=== PATIENT | male | born 1955 | race Caucasian/White ===

== ENCOUNTER 2016-06-01 06:26 | Inpatient (IN) | payer BC ==
[~2016-06-01] VITALS: Ht 177.8 cm; Wt 78.2 kg
[2016-06-01] MEDS ORDERED: ASPIRIN 81 MG CHEW PO STA (06:43)
[2016-06-01 06:50] LABS: BASO % 0.6 %; BASO ABS # 0.05 K/uL (0-0.2); COMPLETE YES; HEMATOCRIT 43.2 % (42-52); IG% 0.1 %; LYMPH % 17.4 %; LYMPH ABS # 1.55 K/uL (1.2-3.4); MEAN CELL VOLUME 79.3 fL (80-100); MEAN CORPUSCULAR HEMOGLOBIN 27.5 pg (25-34); MEAN CORPUSCULAR HGB CONC 34.7 g/dl (32-36); MEAN PLATELET VOLUME 12.8 fL (7.4-10.4); MONO % 6.3 %; NEUT % 75.6 %; PLATELET COUNT 203 K/uL (130-400); RED BLOOD COUNT 5.45 M/uL (4.7-6.1); WHITE BLOOD COUNT 8.91 K/uL (4.8-10.8)
[2016-06-01] MEDS: NITROGLYCERIN 0.4 MG SL PER TAB CHARGE SL PRN ×7 (06:53→14:05)
[2016-06-01 07:06] LABS: BUN/CREATININE RATIO 15.6 (10-20); CALCIUM 8.7 mg/dl (8.5-10.1); CREATININE 0.94 mg/dl (0.60-1.40)
[2016-06-01 07:15] LABS: CKMB/CK RATIO 3.7 (0-3.0)
[2016-06-01] MEDS ORDERED: METOPROLOL TARTRATE 50 MG TAB PO STA (07:15)
[2016-06-01] MEDS ORDERED: FENTANYL CITRATE INJ 50 MCG/1 ML 2 ML VIAL IV STA (07:22)
[2016-06-01] MEDS ORDERED: TRML160 (07:25)
[2016-06-01] MEDS ORDERED: ASPI81TA28 PO (07:25)
[2016-06-01] MEDS ORDERED: GLIP2.5T5 PO (07:25)
[2016-06-01] MEDS ORDERED: SITA100T3 PO (07:25)
[2016-06-01] MEDS ORDERED: CLOP1TAB15 PO (07:25)
[2016-06-01] MEDS ORDERED: EMPA1TAB3 PO (07:25)
[2016-06-01] MEDS ORDERED: NITR0.4D6 (07:25)
[2016-06-01] MEDS ORDERED: ATOR-26 PO (07:25)
[2016-06-01] MEDS ORDERED: RIZA10TA18 PO (07:25)
[2016-06-01] MEDS ORDERED: METO25TA56 PO (07:25)
[2016-06-01] MEDS ORDERED: LOSA50TA6 PO (07:25)
[2016-06-01] MEDS ORDERED: HEPARIN 25000 UNIT/500 ML D5W ONE (07:26)
[2016-06-01] MEDS ORDERED: HEPARIN SOD 5000 UNIT/0.5 ML CARP ONE (07:26)
[2016-06-01 07:45] VITALS: O2SAT 94; BMI 27.8
[2016-06-01] MEDS ORDERED: HEPARIN 25,000 UNIT/500ML D5W 500 ML IV PRN (07:45)
--- NOTE | 2016-06-01 07:58 | DIAGNOSTIC IMAGING REPORT ---
SINGLE VIEW CHEST CLINICAL HISTORY: Atypical chest pain. FINDINGS: An AP, portable, upright chest radiograph is obtained. No prior studies are available for comparison at the time of dictation. The examination is degraded by portable technique and patient rotation. The heart is mildly enlarged. The pulmonary vasculature is noncongested. There are bibasilar airspace opacities. The upper lungs appear clear. No large pleural effusion or pneumothorax is seen. The bony thorax is grossly intact. Degenerative change is noted throughout the thoracic spine. IMPRESSION: 1. Cardiomegaly without radiographic evidence of congestive failure. 2. There are bibasilar airspace opacities. This could represent atelectasis versus an infectious/inflammatory pneumonitis. Clinical correlation will be required. Electronically signed by: Deng Khan M.D. 06/01/2016 7:57 AM Dictated Date/Time: 06/01/2016 7:56 AM
--- NOTE | 2016-06-01 08:36 | EMERGENCY ROOM VISIT NOTE ---
History Report prepared by Tommy: Gladys Portillo Under the Supervision of: Dr. Jero Hunt D.O. First contact with patient: 06:37 Chief Complaint: CARDIAC ASSESSMENT Stated Complaint: POSSIBLE HEART ATTACK History of Present Illness The patient is a 60 year old male who presents to the Emergency Room with complaints of waxing and waning chest pain starting 3 days ago. He currently rates his discomfort as a 6/10 in severity. He had an MA in 2015. He describes the pain as similar. His pain is present down his sternum and radiates into his arms. The pain does not radiate to his back. With his previous MA his chest pain was more in the left side. He was not doing anything in particular when the pain began. Last night at around 0200 the pain was more severe and roused him from his sleep. He reports SOB with walking around 60 feet. He has been taking nitro frequently for the past 2 weeks to no relief. He has stents in the left side of his heart. He denies any previous issues with his aorta. He has been off of his Plavix for the past week. Source of History: patient Onset: 3 days ago Position: chest Symptom Intensity: 6/10 Quality: other (similar to previous MA) Timing: waxes/wanes Associated Symptoms: + SOB, No back pain Note: Pt reports arm pain. Review of Systems See HPI for pertinent positives & negatives. A total of 10 systems reviewed and were otherwise negative. Past Medical & Surgical Medical Problems: (1) Diabetes (2) Heart attack (3) Heart disease (4) Hypertension (5) Kidney stones (6) NSTEMI (non-ST elevated myocardial infarction) Family History Diabetes mellitus FH: heart disease Hypertension Kidney stones Social History Smoking Status: Never Smoker Alcohol Use: none Marital Status: Housing Status: lives with significant other Occupation Status: employed Current/Historical Medications Scheduled Aspirin (Aspirin Ec), 81 MG PO DAILY Atorvastatin (Lipitor), 80 MG PO DAILY Clopidogrel (Plavix), 75 MG PO DAILY Empagliflozin (Jardiance), 25 MG PO DAILY Glipizide-Metformin Hcl (Glipizide/Metformin Hcl), 2 TAB PO BID Losartan Potassium (Cozaar), 50 MG PO DAILY Metoprolol Tartrate (Lopressor) (Lopressor), 25 MG PO BID Rizatriptan Benzoate (Maxalt), 10 MG PO UD Sitagliptin Phosphate (Januvia), 100 MG PO DAILY Miscellaneous Medications Nitroglycerin (Nitroglycerin) Triamcinolone (Triamcinolone Acetonide) Allergies Coded Allergies: Acetaminophen (Unverified Allergy, Unknown, ., 06/01/16) Methadone (Unverified Allergy, Unknown, ., 06/01/16) Oxycodone (Unverified Allergy, Unknown, ., 06/01/16) Propoxyphene (Unverified Allergy, Unknown, ., 06/01/16) Physical Exam Vital Signs Date Time Temp Pulse Resp B/P Pulse Ox O2 Delivery O2 Flow Rate FiO2 06/01/16 11:41 60 16 158/76 99 Room Air 06/01/16 10:00 68 17 142/91 91 Room Air 06/01/16 09:53 67 20 148/98 93 Room Air 06/01/16 09:47 65 17 160/97 93 Room Air 06/01/16 08:30 64 19 158/101 94 Room Air 06/01/16 08:15 151/94 06/01/16 08:05 65 15 94 Room Air 06/01/16 08:00 151/91 06/01/16 07:50 70 17 97 Room Air 06/01/16 07:45 160/93 06/01/16 07:45 94 Room Air 06/01/16 07:35 67 18 156/93 95 Room Air 06/01/16 07:33 68 17 159/87 95 Room Air 06/01/16 07:22 69 18 166/92 96 06/01/16 07:09 71 14 163/106 97 Room Air 06/01/16 06:53 75 17 184/119 97 Room Air 06/01/16 06:39 68 06/01/16 06:37 97 Room Air 06/01/16 06:37 97 Room Air 06/01/16 06:28 36.4 74 20 210/124 97 Room Air Physical Exam GENERAL: ill appearing, sitting up in bed, disheveled EYE EXAM: normal conjunctiva OROPHARYNX: no exudate, no erythema, lips, buccal mucosa, and tongue normal and mucous membranes are moist NECK: supple, no nuchal rigidity, no adenopathy, non-tender LUNGS: Clear to auscultation. Normal chest wall mechanics HEART: no murmurs, S1 normal and S2 normal ABDOMEN: abdomen soft, non-tender, normo-active bowel sounds, no masses, no rebound or guarding. BACK: Back is symmetrical on inspection and there is no deformity, no midline tenderness, no CVA tenderness. SKIN: no rashes and no bruising UPPER EXTREMITIES: upper extremities are grossly normal. Radial pulses are equal bilaterally. LOWER EXTREMITIES: No pitting edema. NEURO EXAM: Normal sensorium, cranial nerves II-XII grossly intact, normal speech, no gross weakness of arms, no gross weakness of legs. Medical Decision & Procedures ER Provider Diagnostic Interpretation: Xray results as stated below per the radiologist's and my interpretation: SINGLE VIEW CHEST CLINICAL HISTORY: Atypical chest pain. FINDINGS: An AP, portable, upright chest radiograph is obtained. No prior studies are available for comparison at the time of dictation. The examination is degraded by portable technique and patient rotation. The heart is mildly enlarged. The pulmonary vasculature is noncongested. There are bibasilar airspace opacities. The upper lungs appear clear. No large pleural effusion or pneumothorax is seen. The bony thorax is grossly intact. Degenerative change is noted throughout the thoracic spine. IMPRESSION: 1. Cardiomegaly without radiographic evidence of congestive failure. 2. There are bibasilar airspace opacities. This could represent atelectasis versus an infectious/inflammatory pneumonitis. Clinical correlation will be required. Electronically signed by: Deng Khan M.D. 06/01/2016 7:57 AM Dictated Date/Time: 06/01/2016 7:56 AM Laboratory Results 06/01/16 06:35 Red Blood Count 5.45, Mean Corpuscular Volume 79.3, Mean Corpuscular Hemoglobin 27.5, Mean Corpuscular Hemoglobin Concent 34.7, Mean Platelet Volume 12.8, Neutrophils (%) (Auto) 75.6, Lymphocytes (%) (Auto) 17.4, Monocytes (%) (Auto) 6.3, Eosinophils (%) (Auto) 0.0, Basophils (%) (Auto) 0.6, Neutrophils # (Auto) 6.74, Lymphocytes # (Auto) 1.55, Monocytes # (Auto) 0.56, Eosinophils # (Auto) 0.00, Basophils # (Auto) 0.05 06/01/16 06:35 Test 06/01/16 06:35 06/01/16 06:42 White Blood Count 8.91 K/uL (4.8-10.8) Red Blood Count 5.45 M/uL (4.7-6.1) Hemoglobin 15.0 g/dL (14.0-18.0) Hematocrit 43.2 % (42-52) Mean Corpuscular Volume 79.3 fL (80-100) Mean Corpuscular Hemoglobin 27.5 pg (25-34) Mean Corpuscular Hemoglobin Concent 34.7 g/dl (32-36) Platelet Count 203 K/uL (130-400) Mean Platelet Volume 12.8 fL (7.4-10.4) Neutrophils (%) (Auto) 75.6 % Lymphocytes (%) (Auto) 17.4 % Monocytes (%) (Auto) 6.3 % Eosinophils (%) (Auto) 0.0 % Basophils (%) (Auto) 0.6 % Neutrophils # (Auto) 6.74 K/uL (1.4-6.5) Lymphocytes # (Auto) 1.55 K/uL (1.2-3.4) Monocytes # (Auto) 0.56 K/uL (0.11-0.59) Eosinophils # (Auto) 0.00 K/uL (0-0.5) Basophils # (Auto) 0.05 K/uL (0-0.2) RDW Standard Deviation 37.6 fL (36.4-46.3) RDW Coefficient of Variation 13.3 % (11.5-14.5) Immature Granulocyte % (Auto) 0.1 % Immature Granulocyte # (Auto) 0.01 K/uL (0.00-0.02) Anion Gap 7.0 mmol/L (3-11) Est Creatinine Clear Calc Drug Dose 82.2 ml/min Estimated GFR () 101.7 Estimated GFR (Non- 87.8 BUN/Creatinine Ratio 15.6 (10-20) Calcium Level 8.7 mg/dl (8.5-10.1) Total Creatine Kinase 98 U/L (39-308) Creatine Kinase MB 3.6 ng/ml (0.5-3.6) Creatine Kinase MB Ratio 3.7 (0-3.0) Troponin I 0.558 ng/ml (0-0.045) Hepatitis C Antibody Screen NEG (NEG) Bedside Troponin I 0.480 ng/ml (0-0.045) Laboratory results per my review. Medications Administered Medications (Trade) Dose Ordered Sig/Berta Route Start Time Stop Time Status Last Admin Dose Admin Aspirin (Aspirin Chew) 324 mg NOW STAT PO 06/01/16 06:43 06/01/16 06:44 DC 06/01/16 06:53 324 MG Nitroglycerin (Nitrostat Tab) 0.4 mg Q5M PRN SL 06/01/16 06:45 07/01/16 06:44 06/01/16 09:57 0.4 MG Metoprolol Tartrate (Lopressor Tab) 25 mg NOW STAT PO 06/01/16 07:15 06/01/16 07:18 DC 06/01/16 07:23 25 MG Heparin Sodium/ Dextrose (Heparin 25,000 Unit/500ml D5W) 25,000 unit STK-MED ONCE .ROUTE 06/01/16 07:26 06/01/16 07:27 DC 06/01/16 07:30 25,000 UNIT Heparin Sodium (Porcine) 41745 unit 10,000 unit STK-MED ONCE .ROUTE 06/01/16 07:26 06/01/16 07:27 DC 06/01/16 07:31 6,000 UNIT Sodium Chloride (Nss 1000ml) 1,000 ml @ 100 mls/hr Q10H IV 06/01/16 09:00 07/01/16 08:59 06/01/16 10:00 100 MLS/HR ECG Indication: chest pain Rate (beats per minute): 74 Rhythm: sinus rhythm Findings: T-wave inversion (Lateral), other (high lateral, slight elevation of V1) Comparison ECG Date: 06-Dec-2014 Change: Flipped T waves are new, ST segment elevation in V1, V2 is old 0735 Repeat EKG: Changes within axis, suspect lead reversal ED Course ED COURSE: Vital signs were reviewed and showed hypertension The patients medical record was reviewed The above diagnostic studies were performed and reviewed. ED treatments and interventions as stated above. 0638: The patient was evaluated in room B9. A complete history and physical examination was performed. 0643: Aspirin 324 mg PO. 0645: Nitroglycerin 0.4 mg SL. 0708: I reevaluated the patient. His pressure is down to the 160s. He still has chest pain. He has no risk factors for bleeding. He will be put on heparin drip. 0713: I reviewed the patient's case with Dr. Penn, [facility]. He will evaluate the patient. 0715: Metoprolol Tartrate 25 mg PO. 0718: Upon reevaluation, the patient has little improvement in his pain. 0719: I reviewed the patient's case with Dr. Merino [facility] - hospitalist. She will evaluate the patient for further management. 0722: Fentanyl Citrate 50 mcg IV. 0726: Heparin Sodium (Porcine) 08832 unit IV, Heparin Sodium/Dextrose 10669 unit IV. 0734: Upon reevaluation, the patient no long has chest pain after the last dose of nitro. I discussed my findings with the patient and he understands and agrees with the treatment plan. Based on the patients age, coexisting illnesses, exam and lab findings the decision to treat as an inpatient was made. The patient remained stable while under my care. The patient will be evaluated for further management. 0745: Heparin Sodium/Dextrose 500 ml @ 25 mls/hr IV. Medical Decision Differential diagnoses includes but is not limited to acute coronary syndrome, myocardial infarction, pericarditis, pulmonary embolus, aortic dissection, pneumonia, pneumothorax, musculoskeletal, shingles, esophageal. Patient is a 60-year-old male who presents the ER for 3 days worth of persistent but waxing and waning chest pain which worsened this morning. He [place] [facility] [place] He stopped his Plavix a week ago as he ran out. Pain is midsternal with shortness of breath and feels worse than his previous heart attack. EKG shows acute flipped T waves in the lateral and high lateral leads in comparison to his previous EKG from [facility] system. The ST segment elevation in the septal leads is unchanged. Patient was extremely hypertensive upon arrival. He was given 3 nitroglycerin with complete resolution of his pain. He was also given aspirin. Troponin resulted and was elevated. This in combination with his acute EKG changes supports acute coronary syndrome. He was placed on a heparin drip and bolus. Cardiology was consulted following the elevated troponin and EKG changes. He was evaluated at bedside. Internal medicine was consulted for the admission. Repeat EKG was performed within the hour of arrival and shows no acute changes. Patient rested comfortably chest pain-free up to admission to the hospitalist group. Consults Time Called: 708 Consulting Physician: Cal [facility]ye [facility] Returned Call: [phone] I reviewed the patient's case with him. He will evaluate the patient. Additional Consults: Time Called: 714 Consulted Physician: Cal Kelley - hospitalist Returned Call: [phone] Additional Comments: I reviewed the patient's case with her. She will evaluate the patient for further management. Impression Primary Impression: NSTEMI (non-ST elevated myocardial infarction) Critical Care I have personally spent 35 minutes of critical care time in the direct management of this patient. This includes bedside care, interpretation of diagnostic studies, and testing, discussion with consultants, patient, and family members, and other required patient management activities. This 35 minutes is in excess of all separately billable procedures. Scribe Attestation The scribe's documentation has been prepared under my direction and personally reviewed by me in its entirety. I confirm that the note above accurately reflects all work, treatment, procedures, and medical decision making performed by me. Departure Information Dispostion Being Evaluated By Hospitalist Referrals No Doctor, Assigned (PCP) Patient Instructions My [facility]
[2016-06-01] MEDS ORDERED: MAGNESIUM HYDROXIDE SUSP 30 ML UDC PO PRN (08:45)
[2016-06-01] MEDS ORDERED: GLUCOSE 10 TABS/TUBE PO PRN (08:45)
[2016-06-01] MEDS ORDERED: GLUCAGON FOR INJ 1 MG VIAL SQ PRN (08:45)
[2016-06-01] MEDS ORDERED: ONDANSETRON INJ 2 MG/ML 2 ML VIAL IV PRN (08:45)
[2016-06-01] MEDS ORDERED: ALUMINUM/MAGNESIUM/SIMETH (MAALOX MAX) 30 ML UDC PO PRN (08:45)
[2016-06-01] MEDS ORDERED: DEXTROSE 50% 50 ML SYR IV PRN (08:45)
[2016-06-01] MEDS ORDERED: GLUCOSE 40% GEL 15 GM TUBE PO PRN (08:45)
[2016-06-01] MEDS ORDERED: SODIUM CHLORIDE 0.9% 1000ML 1,000 ML IV SCH (09:00)
--- NOTE | 2016-06-01 09:20 | History and Physical ---
History & Physical Date & Time of Service: Jun 01, 2016 at 07:52 Chief Complaint: Possible Heart Attack Primary Care Physician: Chad Connors D.O. History of Present Illness This is a 60 year old male with PMH of CAD (hx. of NSTEMI in July 2014) s/p multi-vessel stenting, DM2, HTN, HLD, depression, hx. of migraines, - presented with chest pain. In July of 2014, he had an NSTEMI at [facility]; a multi-vessel CABG was suggested, but patient opted for stenting x 3, stent to the LAD, stent x 2 to the circumflex and obtuse marginal branches. Presented with crushing substernal chest pain that started at around 2AM, with associated shortness of breath, diaphoresis and radiation to bilateral arms. He states that he ran out of his Plavix about a week ago and has not been taking it. Presented to the ER with elevated blood pressure (>200/100) and elevated troponin level (>0.5); was given SL nitro x 3, given IV heparin, metoprolol tartrate 25mg x 1; states that his chest pain has improved and he feels much better. Blood pressure still elevated >160/90 Past Medical/Surgical History Medical Problems: (1) Diabetes Status: Chronic (2) Heart attack Status: Resolved (3) Heart disease Status: Chronic (4) Hypertension Status: Chronic (5) Kidney stones Status: Resolved Family History Diabetes mellitus FH: heart disease Hypertension Kidney stones Social History Smoking Status: Never Smoker Multi-Drug Resistant Organisms History of MDRO: No Allergies Coded Allergies: Acetaminophen (Unverified Allergy, Unknown, ., 06/01/16) Methadone (Unverified Allergy, Unknown, ., 06/01/16) Oxycodone (Unverified Allergy, Unknown, ., 06/01/16) Propoxyphene (Unverified Allergy, Unknown, ., 06/01/16) Home Medications Scheduled Aspirin (Aspirin Ec), 81 MG PO DAILY Atorvastatin (Lipitor), 80 MG PO DAILY Clopidogrel (Plavix), 75 MG PO DAILY Empagliflozin (Jardiance), 25 MG PO DAILY Glipizide-Metformin Hcl (Glipizide/Metformin Hcl), 2 TAB PO BID Losartan Potassium (Cozaar), 50 MG PO DAILY Metoprolol Tartrate (Lopressor) (Lopressor), 25 MG PO BID Rizatriptan Benzoate (Maxalt), 10 MG PO UD Sitagliptin Phosphate (Januvia), 100 MG PO DAILY Miscellaneous Medications Nitroglycerin (Nitroglycerin) Triamcinolone (Triamcinolone Acetonide) Review of Systems Constitutional: + sweats, No chills, No fever Respiratory: + dyspnea on exertion, No cough, No hemoptysis, No shortness of breath, No sputum Cardiovascular: + chest pain, No edema, No orthopnea, No palpitations Abdomen: No GI bleeding, No diarrhea, No nausea, No pain, No vomiting Musculoskeletal: No calf pain Neurologic: No balance problems, No numbness/tingling Hematologic / Lymphatic: No abnormal bleeding/bruising Integumentary: No itch, No rash Physical Exam Vital Signs Date Time Temp Pulse Resp B/P Pulse Ox O2 Delivery O2 Flow Rate FiO2 06/01/16 07:33 68 17 159/87 95 Room Air 06/01/16 07:22 69 18 166/92 96 06/01/16 07:09 71 14 163/106 97 Room Air 06/01/16 06:53 75 17 184/119 97 Room Air 06/01/16 06:39 68 06/01/16 06:37 97 Room Air 06/01/16 06:37 97 Room Air 06/01/16 06:28 36.4 74 20 210/124 97 Room Air General Appearance: no apparent distress Head: normocephalic, atraumatic Eyes: normal inspection ENT: hearing grossly normal Neck: supple Respiratory/Chest: chest non-tender, lungs clear, normal breath sounds, no respiratory distress, no accessory muscle use Cardiovascular: regular rate, rhythm, no edema, no gallop, no murmur Abdomen/GI: non tender, soft Extremities/Musculoskelatal: normal capillary refill, no pedal edema 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, no motor/sensory deficits, alert, normal mood/affect, oriented x 3 Skin: normal color Lymphatic: no adenopathy Diagnostics Laboratory Results Results Past 24 Hours Test 06/01/16 06:35 06/01/16 06:42 Range/Units White Blood Count 8.91 4.8-10.8 K/uL Red Blood Count 5.45 4.7-6.1 M/uL Hemoglobin 15.0 14.0-18.0 g/dL Hematocrit 43.2 42-52 % Mean Corpuscular Volume 79.3 80-100 fL Mean Corpuscular Hemoglobin 27.5 25-34 pg Mean Corpuscular Hemoglobin Concent 34.7 32-36 g/dl Platelet Count 203 130-400 K/uL Mean Platelet Volume 12.8 7.4-10.4 fL Neutrophils (%) (Auto) 75.6 % Lymphocytes (%) (Auto) 17.4 % Monocytes (%) (Auto) 6.3 % Eosinophils (%) (Auto) 0.0 % Basophils (%) (Auto) 0.6 % Neutrophils # (Auto) 6.74 1.4-6.5 K/uL Lymphocytes # (Auto) 1.55 1.2-3.4 K/uL Monocytes # (Auto) 0.56 0.11-0.59 K/uL Eosinophils # (Auto) 0.00 0-0.5 K/uL Basophils # (Auto) 0.05 0-0.2 K/uL RDW Standard Deviation 37.6 36.4-46.3 fL RDW Coefficient of Variation 13.3 11.5-14.5 % Immature Granulocyte % (Auto) 0.1 % Immature Granulocyte # (Auto) 0.01 0.00-0.02 K/uL Sodium Level 142 136-145 mmol/L Potassium Level 4.0 3.5-5.1 mmol/L Chloride Level 108 98-107 mmol/L Carbon Dioxide Level 27 21-32 mmol/L Anion Gap 7.0 3-11 mmol/L Blood Urea Nitrogen 15 7-18 mg/dl Creatinine 0.94 0.60-1.40 mg/dl Est Creatinine Clear Calc Drug Dose 82.2 ml/min Estimated GFR () 101.7 Estimated GFR (Non- 87.8 BUN/Creatinine Ratio 15.6 10-20 Random Glucose 190 70-99 mg/dl Calcium Level 8.7 8.5-10.1 mg/dl Total Creatine Kinase 98 39-308 U/L Creatine Kinase MB 3.6 0.5-3.6 ng/ml Creatine Kinase MB Ratio 3.7 0-3.0 Troponin I 0.558 0-0.045 ng/ml Bedside Troponin I 0.480 0-0.045 ng/ml Diagnostic Radiology SINGLE VIEW CHEST CLINICAL HISTORY: Atypical chest pain. FINDINGS: An AP, portable, upright chest radiograph is obtained. No prior studies are available for comparison at the time of dictation. The examination is degraded by portable technique and patient rotation. The heart is mildly enlarged. The pulmonary vasculature is noncongested. There are bibasilar airspace opacities. The upper lungs appear clear. No large pleural effusion or pneumothorax is seen. The bony thorax is grossly intact. Degenerative change is noted throughout the thoracic spine. IMPRESSION: 1. Cardiomegaly without radiographic evidence of congestive failure. 2. There are bibasilar airspace opacities. This could represent atelectasis versus an infectious/inflammatory pneumonitis. Clinical correlation will be required. EKG NSR @ 70bpm, T wave inversion at Leads I and AVL Impression Assessment and Plan This is a 60 year old male with PMH of CAD (hx. of NSTEMI in July 2014) s/p multi-vessel stenting, DM2, HTN, HLD, depression, hx. of migraines NSTEMI in the setting of CAD s/p stenting possibly secondary to non-compliance with Plavix substernal chest pain on presentation with radiation to the arms chest pain improved with SL nitro EKG with no significant ST segment changes; T wave inversion in Leads I and aVL noted started on IV heparin appreciate cardiology input possible cardiac catheterization later today echo pending continue aspirin, metoprolol, Cozaar, Plavix, high intensity statin DM2 Last known A1c in April 2016 = 8.1% will hold oral agents start insulin sliding scale HTN uncontrolled appreciate cardiology input metoprolol q6 dosing Cozaar increased to 100mg daily DVT ppx IV heparin FULL CODE
--- NOTE | 2016-06-01 09:23 | CARDIOLOGY CONSULTATION ---
DATE OF CONSULTATION: 06/01/2016 DATE OF CONSULTATION: 06/01/2016. CONSULTATION REQUESTED BY: Dr. Hunt. REASON FOR CONSULTATION: Chest pain. HISTORY OF PRESENT ILLNESS: Mr. Willis is a 60-year-old gentleman who normally sees Dr. Surya Cortés of [facility] practice. He presented to [facility] early in the a.m. of 06/01/2016 with a complaint of chest pain. The patient states that his pain started 3 days ago. He described it as a substernal severe pressure sensation with radiation into his abdomen. It is also associated with radiation across precordium up into his bilateral shoulders and was associated with shortness of breath and diaphoresis. He states when the pain first started, he was simply sitting, not doing anything and the pain that persisted for the next several hours. He states he has been taking nitroglycerin sublingually constantly with minimal if any relief whatsoever. He states that the pain then waxed and waned over the next few days; however, he declined to seek medical attention. Of note, Dr. Cortés's office was notified and the patient was given an urgent appointment at 9:00 a.m. this morning; however, the patient canceled it due to not wanting to miss work. The patient states last evening the pain was very severe and he could not take it anymore, so he finally came into the Emergency Department. When asked why he did not come in sooner he states he had things to do and could not be bothered with it. Otherwise, he is not taken his Plavix in over a week. He states that his primary care physician refused to fill the script for him. However, review of the medical record according to Dr. Connors's note the patient told him he did not want to take Plavix anymore and he was stopping it. Dr. Connros instructed him not to. When this information was relayed to the patient he called Dr. Connors a "liar". The patient states otherwise he has been compliant with his aspirin, metoprolol, losartan and atorvastatin. His last dose of Plavix was exactly 1 week ago. Upon presentation to the Emergency Department, the patient was severely hypertensive with pressure of 210/124. Initial EKG was unremarkable; however, first set of enzymes came back with a troponin of 0.5. He was started on heparin and I was contacted. At that time I instructed the patient also be started on metoprolol and the patient was pain free after receiving nitroglycerin. Of note, the patient's medical history the patient had a similar episode in 2014 when he presented to [facility] with a non-ST segment elevation [place]. Cardiac catheterization revealed multivessel coronary artery disease and coronary bypass grafting surgery was recommended; however, the patient refused stating that he could not miss time for work then he underwent suboptimal revascularization with multiple PCIs with both drug eluting and bare metal stents at that time. PAST SURGICAL HISTORY: 1. PCI to the mid LAD, distal circumflex and first obtuse marginal with both drug-eluting and bare metal stents. The distal RCA lesion was not intervened on at that time. 2. Finger surgery. MEDICAL ILLNESSES: 1. Coronary artery disease status post multiple PCIs refusing bypass surgery. 2. Diabetes. 3. Dyslipidemia. 4. Hypertension. 5. Sleep apnea. 6. Migraines. 7. Depression. FAMILY HISTORY: Noncontributory. SOCIAL HISTORY: The patient is a former tobacco smoker, uses smokeless tobacco daily. Denies alcohol or recreational drug use. He is and lives at home with his . He states he has to care for his who has back pain. REVIEW OF SYSTEMS: As per HPI, all other review of systems reviewed and negative at this time. ALLERGIES: 1. LISINOPRIL. 2. PERCOCET. 3. PROPOXYPHENE. MEDICATIONS AN OUTPATIENT: 1. Aspirin 81 mg daily. 2. Losartan 50 mg daily. 3. Metoprolol 25 mg b.i.d. 4. Lipitor 80 mg daily. 5. Glipizide/metformin b.i.d. 6. Jardiance daily. 7. Maxalt as needed. PHYSICAL EXAMINATION: VITALS: Temperature 36.4, pulse 64, respiratory rate 12, blood pressure 158/101. Upon presentation again his pressure was 210/124. GENERAL: Awake, alert, oriented x3 in no acute distress, flattened affect. HEAD, EYES, EARS, NOSE, AND THROAT: Normocephalic, atraumatic. Pupils equal, round, and reactive to light and accommodation. Extraocular muscles intact. Anicteric sclerae. Moist mucous membranes. NECK: No JVD, no bruit. CARDIOVASCULAR: Regular. Positive S4. Normal S1 and S2. No S3. No murmurs or rubs. PULMONARY: Clear to auscultation bilaterally. No rales, rhonchi, or wheezing. ABDOMEN: Bowel sounds x4, soft. No rebound, guarding, tenderness. No organomegaly. EXTREMITIES: No clubbing, cyanosis or edema. +2 pedal pulses bilaterally. SKIN: Warm and dry. TEST RESULTS: A 12-lead EKG performed in the Emergency Department independently reviewed at this time shows normal sinus rhythm at 74 beats per minute, normal axis, normal intervals, inverted T-waves in the lateral leads, which are new compared to previous study of November 2014. LABORATORY STUDIES OF SIGNIFICANCE: Point of care troponin of 0.558. CPK of 98. Sodium 142, potassium 4, BUN 15, creatinine 0.9. IMPRESSION: 1. Non-ST segment elevation myocardial infarction. 2. Hypertensive urgency. 3. Coronary artery disease. 4. Medical noncompliance. 5. Dyslipidemia. RECOMMENDATIONS: It was my pleasure to see Mr. Willis in consultation today. The patient was counseled that given his presentation along with his elevated troponin and hypertensive presentation, I believe the most prudent course of action at this point will be continued on heparin drip which has been started as well as obtain further blood pressure control at this time. It is not quite clear whether the hypertensive urgency set off the chest discomfort and troponin elevation or whether it is the other way around. So at this time he will be continued on his metoprolol and I will increase it to q. 6 hours. His losartan will be increased to 100 mg x1 now. He will be continued on aspirin and Plavix will be restarted. Otherwise his atorvastatin will also be continued. A 2D echocardiogram will be performed at that time. We will tentatively schedule on cardiac catheterization on 06/02/2016, however should symptoms change then urgent cardiac catheterization may be necessary. However, I would prefer to get his blood pressure under control first if possible. The patient states he understands, he agrees to the above plan and will proceed as directed.
[2016-06-01 11:18] VITALS: Ht 177.8 cm; Wt 78.2 kg
[2016-06-01 12:43] VITALS: O2SAT 97
[2016-06-01 12:45] VITALS: BP 172/92; PULSE 59; TEMP 36.7; O2SAT 97
[2016-06-01] MEDS ORDERED: LOSARTAN POTASSIUM 50 MG TAB PO SCH (13:00)
[2016-06-01] MEDS ORDERED: METOPROLOL TARTRATE 25 MG TAB PO SCH (13:00)
[2016-06-01] MEDS ORDERED: METOPROLOL TARTRATE 1 MG/ML VIAL - CCU EMERGENCY DRUG ONE (13:41)
[2016-06-01] MEDS ORDERED: ATORVASTATIN 20 MG TAB PO SCH (14:00)
[2016-06-01] MEDS ORDERED: CLOPIDOGREL BISULFATE 75 MG TAB PO SCH (14:00)
[2016-06-01] MEDS ORDERED: AMLODIPINE BESYLATE 5 MG TAB PO ONE (14:00)
[2016-06-01] MEDS ORDERED: MoRPHine SULFATE 2 MG/ML CARP ONE (14:08)
[2016-06-01 14:34] LABS: CKMB/CK RATIO 8.5 (0-3.0)
--- NOTE | 2016-06-01 14:36 | Discharge Instructions ---
Discharge Instructions Date of Service Jun 01, 2016. Admission Reason for Admission: Nstemi Discharge Discharge Diagnosis / Problem: NSTEMI, in the setting of multi-vessel CAD Discharge Goals Goal(s): Decrease discomfort, Improve function, Diagnostic testing, Therapeutic intervention Activity Recommendations Activity Limitations: resume your previous activity . Instructions / Follow-Up Instructions / Follow-Up Patient with multi-vessel CAD IV heparin, metoprolol 25mg q6, losartan 100mg, amlodipine 5mg started nitro paste 1.5inch Current Hospital Diet Patient's current hospital diet: Discharge Diet Recommended Diet: N/A (currently NPO) Pending Studies Studies pending at discharge: no Medical Emergencies . Who to Call and When: Medical Emergencies: If at any time you feel your situation is an emergency, please call 911 immediately. . Non-Emergent Contact Non-Emergency issues call your: Primary Care Provider, [facility] Consultant . . "Provider Documentation" section prepared by Earlene Hackett. VTE Core Measure Inpt VTE Proph given/why not?: Other Anticoagulation (IV heparin)
--- NOTE | 2016-06-01 14:37 | ECHOCARDIOGRAM REPORT ---
*NOTICE TO RECEIVING LIBERTARIAN AGENCY This information is strictly Confidential and protected under [place] law. [place] law prohibits you from making any further disclosure of this information unless further disclosure is expressly permitted by the written consent of the person to whom it pertains or is authorized by law. A general authorization for the release of medical or other information is not sufficient for this purpose. Hospital accepts no responsibility if the information is made available to any other person, INCLUDING THE PATIENT. Interpretation Summary * Name: ABHILASH GARCIA Study Date: 06/01/2016 11:12 AM BP: 142/91 mmHg * Patient Location: C.EDB HR: 68 * : 1955 (M/d/yyyy) Gender: Male Height: 65 in * Age: 60 yrs Ethnicity: CA Weight: 172 lb * Ordering Physician: Chad Penn * Referring Physician: Self, Referred * Performed By: Zamzam Mar RCS * * Reason For Study: CHEST PAIN * BSA: 1.9 m2 * -- Conclusions -- * The left ventricle is normal in size. * There is moderate concentric left ventricular hypertrophy. * There is very mild hypokinesis of the inferior, posterior and inferosptal chan at the base and mid levels with preserved wall motion otherwise. * Ejection Fraction = 55-60%. * There is mild to moderate mitral regurgitation. Procedure Details * Left Ventricle The left ventricle is normal in size. There is moderate concentric left ventricular hypertrophy. Ejection Fraction = 55-60%. There is very mild hypokinesis of the inferior, posterior and inferosptal chan at the base and mid levels with preserved wall motion otherwise. * Atria The left atrium is mildly dilated. Right atrial size is normal. No ASD detected; PFO is not assessed. * Mitral Valve The mitral valve anatomy is normal. There is no mitral valve stenosis. There is mild to moderate mitral regurgitation. * Tricuspid Valve The tricuspid valve anatomy is normal. There is trace tricuspid regurgitation. * Aortic Valve The aortic valve is normal in structure and function. No hemodynamically significant valvular aortic stenosis. There is no significant aortic regurgitation. * Pulmonic Valve The pulmonic valve is not well visualized. Trace pulmonic valvular regurgitation. * Great Vessels The aortic root is normal size. * Pericardium/Pleural There is no pericardial effusion. * Great Vessels Normal inferior vena cava diameter and respiratory variation suggests normal central venous pressure. * * MMode 2D Measurements and Calculations * IVSd 1.6 cm * IVSs 1.7 cm * * LVIDd 4.6 cm * LVIDs 3.0 cm * LVPWd 1.2 cm * LVPWs 1.8 cm * * IVS/LVPW 1.4 * FS 34.0 % * EDV(Teich) 98.1 ml * ESV(Teich) 36.3 ml * EF(Teich) 63.0 % * * EDV(cubed) 98.4 ml * ESV(cubed) 28.3 ml * EF(cubed) 71.3 % * % IVS thick 5.1 % * % LVPW thick 59.0 % * * LV mass(C)d 251.4 grams * LV mass(C)dI 135.5 grams/m\S\2 * LV mass(C)s 212.1 grams * LV mass(C)sI 114.3 grams/m\S\2 * * CO(Teich) 4.0 l/min * CI(Teich) 2.2 l/min/m\S\2 * SV(Teich) 61.8 ml * SI(Teich) 33.3 ml/m\S\2 * CO(cubed) 4.6 l/min * CI(cubed) 2.5 l/min/m\S\2 * SV(cubed) 70.1 ml * SI(cubed) 37.8 ml/m\S\2 * * Ao root diam 3.0 cm * Ao root area 6.9 cm\S\2 * ACS 1.9 cm * LA dimension 4.5 cm * * asc Aorta Diam 2.9 cm * * LA/Ao 1.5 * LVOT diam 2.0 cm * LVOT area 3.0 cm\S\2 * * LVAd ap4 45.9 cm\S\2 * LVLd ap4 9.3 cm * EDV(MOD-sp4) 186.0 ml * LVAs ap4 25.6 cm\S\2 * LVLs ap4 7.6 cm * ESV(MOD-sp4) 72.0 ml * EF(MOD-sp4) 61.3 % * * LVAd ap2 38.7 cm\S\2 * LVLd ap2 8.9 cm * EDV(MOD-sp2) 141.0 ml * LVAs ap2 21.0 cm\S\2 * LVLs ap2 7.3 cm * ESV(MOD-sp2) 53.0 ml * EF(MOD-sp2) 62.4 % * * CO(MOD-sp4) 7.4 l/min * CI(MOD-sp4) 4.0 l/min/m\S\2 * SV(MOD-sp4) 114.0 ml * SI(MOD-sp4) 61.4 ml/m\S\2 * * CO(MOD-sp2) 5.7 l/min * CI(MOD-sp2) 3.1 l/min/m\S\2 * SV(MOD-sp2) 88.0 ml * SI(MOD-sp2) 47.4 ml/m\S\2 * * * * * * Doppler Measurements and Calculations * MV E max liliana 79.8 cm/sec * MV A max liliana 50.1 cm/sec * * MV E/A 1.6 * * MV P1/2t max liliana 87.3 cm/sec * MV P1/2t 101.7 msec * MVA(P1/2t) 2.2 cm\S\2 * MV dec slope 251.5 cm/sec\S\2 * MV dec time 0.17 sec * * Ao V2 max 100.3 cm/sec * Ao max PG 4.0 mmHg * Ao max PG (full) 1.7 mmHg * MONO(V,A) 2.3 cm\S\2 * MONO(V,D) 2.3 cm\S\2 * * LV V1 max PG 2.3 mmHg * * LV V1 max 76.5 cm/sec * * PA V2 max 74.9 cm/sec * PA max PG 2.2 mmHg * * PI max liliana 145.8 cm/sec * PI max PG 8.5 mmHg * PI dec slope 95.4 cm/sec\S\2 * PI P1/2t 447.7 msec * *
--- NOTE | 2016-06-01 14:38 | Discharge Summary ---
Discharge Summary Date of Service Jun 01, 2016. Discharge Summary Admission Date: Jun 01, 2016 at 09:04 Discharge Date: Jun 01, 2016 Discharge Disposition: Acute care facility Principal Diagnosis: NSTEMI CAD, multi-vessel disease s/p stent x 3 Admission Information HPI (per Admitting provider): This is a 60 year old male with PMH of CAD (hx. of NSTEMI in July 2014) s/p multi-vessel stenting, DM2, HTN, HLD, depression, hx. of migraines, - presented with chest pain. In July of 2014, he had an NSTEMI at [facility]; a multi-vessel CABG was suggested, but patient opted for stenting x 3, stent to the LAD, stent x 2 to the circumflex and obtuse marginal branches. Presented with crushing substernal chest pain that started at around 2AM, with associated shortness of breath, diaphoresis and radiation to bilateral arms. He states that he ran out of his Plavix about a week ago and has not been taking it. Presented to the ER with elevated blood pressure (>200/100) and elevated troponin level (>0.5); was given SL nitro x 3, given IV heparin, metoprolol tartrate 25mg x 1; states that his chest pain has improved and he feels much better. 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 of NSTEMI in July 2014) s/p multi-vessel stenting, DM2, HTN, HLD, depression, hx. of migraines *spoke with cardiology, recommendation made to transfer patient to tertiary care facility, possible CABG after cath needed* NSTEMI in the setting of CAD s/p stenting possibly secondary to non-compliance with Plavix substernal chest pain on presentation with radiation to the arms chest pain improved with SL nitro EKG with no significant ST segment changes; T wave inversion in Leads I and aVL noted started on IV heparin appreciate cardiology input possible cardiac catheterization later today echo pending continue aspirin, metoprolol, Cozaar, Plavix, high intensity statin DM2 Last known A1c in April 2016 = 8.1% will hold oral agents start insulin sliding scale HTN uncontrolled appreciate cardiology input metoprolol q6 dosing Cozaar increased to 100mg daily DVT ppx IV heparin FULL CODE Total time spent on discharge = 45 minutes This includes examination of the patient, discharge planning, medication reconciliation, and communication with other providers. Discharge Instructions Patient with multi-vessel CAD IV heparin, metoprolol 25mg q6, losartan 100mg, amlodipine 5mg started nitro paste 1.5inch
[2016-06-01 15:01] LABS: PARTIAL THROMBOPLASTIN RATIO 2.3
[2016-06-01 15:36] VITALS: BP 155/81; PULSE 86; TEMP 36.8; O2SAT 96
[2016-06-01] MEDS ORDERED: INSULIN ASPART 100 UNITS/ML 3 ML PEN SC SCH (16:15)
--- NOTE | 2016-06-01 16:46 | PROGRESS NOTE ---
DATE: 06/01/2016 CARDIOLOGY CONSULTATION FOLLOWUP NOTE The patient was seen urgently after complaints of chest pain, transient nonsustained ventricular tachycardia on telemetry, 4-6 beats in duration. The patient's symptoms were relieved with sublingual and topical nitrates, 2.5 mg IV metoprolol and 2 mg of morphine. EKG demonstrated biphasic T-wave in lead V3 only. Examination revealed no acute heart failure. Serial troponins demonstrated elevation in troponin of 14.5 on second testing. In the interim to laboratory study results, the patient was examined and found to be asymptomatic after treatment. Recommendations made for transfer to [facility] due to multivessel coronary artery disease, previously identified in October 2014 with multivessel coronary intervention. Echocardiogram demonstrates very subtle hypokinesis of the inferoposterior wall and inferoseptum, but preserved LV function. The patient is agreeable to plan. Ambulance transfer arranged. JANETTE
[2016-06-01 16:56] VITALS: O2SAT 97
[2016-06-01 16:57] VITALS: BP 164/86; PULSE 61; TEMP 36.6; O2SAT 96
[2016-06-01] MEDS ORDERED: IV FLUIDS COMPLETED PRN (17:22)
[2016-06-01] MEDS ORDERED: NITROGLYCERIN OINT 2% 1GM PACKET EXT SCH (18:00)
[2016-06-01] MEDS ORDERED: NURSING VERBAL MED ORDER ONE (18:45)
[2016-06-02] MEDS ORDERED: AMLODIPINE BESYLATE 5 MG TAB PO SCH (09:00)
[2016-06-02] MEDS ORDERED: ASPIRIN 81 MG ECTAB PO SCH (09:00)
== END 2016-06-01 17:22 | disposition short-term general hospital (02) | DRG 281 ==
LOC: ENRESERVDT → ENRESERVTM → C.EDB 06:27 → C.2T 09:04
PROVIDERS: ADMIT Family Medicine; ATTEND Family Medicine
DX: I21.4 Non-ST elevation (NSTEMI) myocardial infarction (principal); I47.2 Ventricular tachycardia; I25.10 Atherosclerotic heart disease of native coronary artery without angina pectoris; I10 Essential (primary) hypertension; E11.9 Type 2 diabetes mellitus without complications; E78.5 Hyperlipidemia, unspecified; G43.909 Migraine, unspecified, not intractable, without status migrainosus; G47.30 Sleep apnea, unspecified; I25.2 Old myocardial infarction; Z91.14 Patient's other noncompliance with medication regimen; Z95.5 Presence of coronary angioplasty implant and graft; Z87.891 Personal history of nicotine dependence; Z79.82 Long term (current) use of aspirin; Z79.02 Long term (current) use of antithrombotics/antiplatelets; Z79.84 Long term (current) use of oral hypoglycemic drugs; Z79.899 Other long term (current) drug therapy

== ENCOUNTER 2021-05-20 14:34 | Observation (INO) ==
[2021-05-20] MEDS ORDERED: ONDANSETRON INJ 2 MG/ML 2 ML VIAL IV STA (14:47)
[2021-05-20] MEDS ORDERED: SODIUM CHLORIDE 0.9% 1000ML 1,000 ML IV ONE (14:47)
--- NOTE | 2021-05-20 14:55 | Emergency Department Note ---
Impression & Plan Dizziness, Slurred speech, Confusion, Hyperglycemia ED Provider Note NAME: ABHILASH GARCIA AGE: 65 SEX: M : 1955 ARRIVES VIA: Walk-In INFORMANT: Patient ED PROVIDER(S): Jero Hunt DO CHIEF COMPLAINT: dizzy HPI: Patient is a 65-year-old male with a past medical history diabetes, CAD, and hypertension who presents the ER for dizziness. He notes about 20 minutes prior to arrival he started feeling everything spinning became lightheaded and very nauseated. He was sitting at the table next to his . He was slurring his words. He had trouble walking. He went into the bathroom and started vomiting. Denies any focal weakness of his arms or legs. notes that he was fairly confused for some time but has improved now back to baseline. He denies any headache or change in vision. He denies any chest pain to me but did admit to triage that he was having some chest pain. He does feel little short of breath. No belly pain. Denies any dysuria urgency or frequency. No other exacerbating remitting factors. ROS: See above HPI for pertinent positives & negatives. A total of 10 systems reviewed and were otherwise negative. PAST MEDICAL HISTORY:See Below PAST SURGICAL HISTORY:See Below FAMILY HISTORY:See Below SOCIAL HISTORY:See Below HOME MEDICATIONS:See Below ALLERGIES:See Below VITALS:See Below PHYSICAL EXAMINATION: GENERAL: Sitting up in bed, alert, well appearing, well nourished, no distress, non-toxic EYE EXAM: normal conjunctiva. Pupils are equal round and reactive to light. OROPHARYNX: no exudate, no erythema, lips, buccal mucosa, and tongue normal and mucous membranes are moist NECK: supple, no nuchal rigidity, no adenopathy, non-tender LUNGS: Clear to auscultation. Normal chest wall mechanics HEART: no murmurs, S1 normal and S2 normal ABDOMEN: abdomen soft, non-tender, normo-active bowel sounds, no masses, no rebound or guarding. UPPER EXTREMITIES: upper extremities are grossly normal. LOWER EXTREMITIES: No pitting edema. NEURO EXAM: Normal sensorium, cranial nerves II-XII intact, normal speech, no weakness of arms, no weakness of legs. No drift. Finger to nose intact. Gross sensation intact. MEDICAL DECISION MAKING: Patient is a 65-year-old male who presents the ER for above-stated complaint. IV was established blood was obtained. Labs show no significant leukocytosis or anemia. VBG with a pH of 7.4 and a CO2 of 32. BMP with mild hyponatremia 132. Mild hypokalemia at 3.3 which I do favor secondary to his tachypnea. Creatinine slightly elevated at 1.5. BSG elevated at 420.LFTs bilirubin and troponin and lipase were unremarkable. He adamantly denied any chest pain or shortness of breath. Covid was negative. CT head and chest x-ray were unremarkable. He was given IV fluids and insulin. Patient was updated bedside. Discussed with hospitalist for further evaluation. CT angios were ordered after he was later better able to qualify his story. Patient was admitted shortly after this. CT angios were still not done will defer to the hospitalist for follow-up. Triage Nursing notes reviewed. Limited review of prior medical records performed Vital Signs: reviewed and remarkable for no significant abnormalities Differential diagnosis: Differential Diagnosis includes but is not limited to ischemic Stroke, hemorrhagic stroke, bells palsy, mass, neoplasm, migraine headache, seizure, subarachnoid hemorrhage, TIA, and transient global amnesia. ER treatment provided: See below Diagnostics interpreted by me: ECG: Sinus rhythm rate of 62 Left axis PVCs QTC 450 T wave inversion in the lateral leads with nonspecific ST wave changes in V3 and V4 as well as T wave inversion in the high lateral leads. No significant change from previous Cardiac Monitoring: An order was placed for continuous cardiac monitoring. The monitor shows a rate of 64 with sinus rhythm. Laboratory studies: As stated above and show below. Imaging studies: CT head was negative Portable AP upright 1 view the chest was unremarkable Consultation(s): Discussed with Frances from [facility] service for further evaluation Procedures: none Critical Care: None Past Med/Surg History Social History Smoking Status: Former smoker Feels Safe at Home: Yes Allergies Allergies Allergy/AdvReac Type Severity Reaction Status Date / Time acetaminophen Allergy Unknown . Unverified 05/20/21 16:08 methadone Allergy Unknown . Unverified 05/20/21 16:08 oxycodone Allergy Unknown . Unverified 05/20/21 16:08 propoxyphene Allergy Unknown . Unverified 05/20/21 16:08 Home Meds Home Medications Medication Instructions Recorded Confirmed albuterol sulfate 2.5 mg INHALATION DIRECTED PRN 05/20/21 05/20/21 amlodipine 10 mg tablet 10 mg PO DAILY 05/20/21 05/20/21 aspirin 81 mg chewable tablet 81 mg PO DAILY 05/20/21 05/20/21 clopidogrel 75 mg tablet 75 mg PO DAILY 05/20/21 05/20/21 ezetimibe 10 mg tablet 10 mg PO DAILY 05/20/21 05/20/21 gabapentin 300 mg capsule 300 mg PO HS 05/20/21 05/20/21 insulin aspart U-100 100 unit/mL 10 unit SUBCUT TIDM 05/20/21 05/20/21 (3 mL) subcutaneous pen (Novolog Flexpen U-100 Insulin aspart) insulin glargine 100 unit/mL (3 38 unit SUBCUT HS 05/20/21 05/20/21 mL) subcutaneous pen (Lantus Solostar U-100 Insulin) isosorbide mononitrate 30 mg 30 mg PO DAILY 05/20/21 05/20/21 tablet,extended release 24 hr losartan 100 mg tablet 100 mg PO DAILY 05/20/21 05/20/21 metformin 500 mg tablet 1,000 mg PO BID 05/20/21 05/20/21 metoprolol tartrate 25 mg tablet 37.5 mg PO BID 05/20/21 05/20/21 nitroglycerin 0.4 mg sublingual 0.4 mg SUBLINGUAL DIRECTED 05/20/21 05/20/21 tablet (Nitrostat) tamsulosin 0.4 mg capsule 0.4 mg PO DAILY 05/20/21 05/20/21 Results & Data (ED) Vital Signs Vital Signs - 24 hr 05/20/21 14:40 05/20/21 14:56 05/20/21 17:28 Temperature 36.7 C Temperature Source Oral Pulse Rate 62 56 L Pulse Rate [Apical] 55 L 53 L Pulse Rhythm [Apical] Pulse Strength [Apical] Respiratory Rate 24 24 12 Respiratory Effort / Characteristics Non-Labored Spontaneous Respiratory Depth Normal Respiratory Pattern Regular Blood Pressure 106/64 Blood Pressure [Right Arm] 106/64 116/68 Blood Pressure Mean 78 Blood Pressure Mean [Right Arm] 78 84 Blood Pressure Position [Right Arm] Pulse Oximetry 100 100 98 Oxygen Delivery Method Room Air Room Air Sepsis Recent Fever Within 48 Hours No Sepsis New/Unexplained Change in Mental Status No Sepsis Action Taken by Nursing No Action Required 05/20/21 18:00 Temperature Temperature Source Pulse Rate Pulse Rate [Apical] 66 Pulse Rhythm [Apical] Regular Pulse Strength [Apical] Normal Respiratory Rate 20 Respiratory Effort / Characteristics Non-Labored Spontaneous Respiratory Depth Normal Respiratory Pattern Regular Blood Pressure Blood Pressure [Right Arm] 128/85 Blood Pressure Mean Blood Pressure Mean [Right Arm] 99 Blood Pressure Position [Right Arm] Sitting Pulse Oximetry 98 Oxygen Delivery Method Room Air Sepsis Recent Fever Within 48 Hours Sepsis New/Unexplained Change in Mental Status Sepsis Action Taken by Nursing Laboratory Data Result diagrams: 05/20/21 14:43 05/20/21 14:43 Lab Results 05/20/21 05/20/21 05/20/21 Range/Units 14:43 14:43 14:47 WBC 10.47 (4.8-10.8) K/uL RBC 5.27 (4.7-6.1) M/uL Hgb 14.8 (14.0-18.0) g/dL POC Hgb 14.6 (14.0-18.0) g/dl Hct 41.6 L (42-52) % POC Hct 43 (42-52) % MCV 78.9 L (80-100) fL MCH 28.1 (25-34) pg MCHC 35.6 (32-36) g/dL RDW Std Deviation 37.3 (36.4-46.3) fL RDW Coeff of Sadi 13.1 (11.5-14.5) % Plt Count 241 (130-400) K/uL MPV 12.8 H (7.4-10.4) fL Immature Gran % (Auto) 0.2 % Neut % (Auto) 54.2 % Lymph % (Auto) 38.6 % [place] % (Auto) 6.1 % Eos % (Auto) 0.4 % Baso % (Auto) 0.5 % Neut # (Auto) 5.68 (1.4-6.5) K/uL Lymph # (Auto) 4.04 H (1.2-3.4) K/uL [place] # (Auto) 0.64 H (0.11-0.59) K/uL Eos # (Auto) 0.04 (0-0.5) K/uL Baso # (Auto) 0.05 (0-0.2) K/uL Immature Gran # (Auto) 0.02 (0.00-0.02) K/uL VBG pH (7.36-7.41) VBG pCO2 (38-50) mmHg VBG pO2 mmHg VBG HCO3 mmol/L VBG O2 Saturation % VBG Base Excess mEq/L Barometric Pressure mm/Hg POC Sodium 135 (135-144) mmol/L Sodium 132 L (136-145) mmol/L POC Potassium 3.3 (3.3-5.0) mmol/L Potassium 3.3 L (3.5-5.1) mmol/L POC Chloride 97 L (101-112) mmol/L Chloride 97 L (98-107) mmol/L Carbon Dioxide 21 (21-32) mmol/L POC Total CO2 22 L (24-31) mmol/L Anion Gap 14 H (3-11) POC Anion Gap 21.0 (16-25) mmol/L POC BUN 19 H (7-18) mg/dl BUN 19 (6-23) mg/dl Creatinine 1.55 H (0.6-1.4) mg/dl POC Creatinine 1.5 H (0.6-1.3) mg/dl Est Cr Clr Drug Dosing 44.4 ml/min Est GFR ( Amer) 53.7 ml/min Est GFR (Non-Af Amer) 46.3 ml/min BUN/Creatinine Ratio 12.3 (10-20) Glucose 420 H* (70-99(Fasting)) mg/dl POC Glucose (70-99) mg/dl POC Glucose (other) 422 H* (70-99) mg/dl Calcium 9.1 (8.5-10.1) mg/dl POC Ioniz Calcium Stu 1.12 (1.12-1.32) mmol/l Magnesium (1.7-2.4) mg/dl Total Bilirubin 0.8 (0.2-1.0) mg/dl AST 11 L (13-39) U/L ALT 9 (7-52) U/L Alkaline Phosphatase 107 H (34-104) U/L Troponin I < 0.03 (0-0.04) ng/ml Total Protein 6.9 (6.0-8.3) gm/dl Albumin 4.1 (3.4-5.0) gm/dl Globulin 2.8 (2.5-4.0) gm/dl Albumin/Globulin Ratio 1.5 (0.9-2) Lipase 14 (11-82) U/L SARS-CoV-2, RNA, NAAT (NEGATIVE) 05/20/21 05/20/21 05/20/21 Range/Units 14:59 15:03 15:04 WBC (4.8-10.8) K/uL RBC (4.7-6.1) M/uL Hgb (14.0-18.0) g/dL POC Hgb (14.0-18.0) g/dl Hct (42-52) % POC Hct (42-52) % MCV (80-100) fL MCH (25-34) pg MCHC (32-36) g/dL RDW Std Deviation (36.4-46.3) fL RDW Coeff of Sadi (11.5-14.5) % Plt Count (130-400) K/uL MPV (7.4-10.4) fL Immature Gran % (Auto) % Neut % (Auto) % Lymph % (Auto) % [place] % (Auto) % Eos % (Auto) % Baso % (Auto) % Neut # (Auto) (1.4-6.5) K/uL Lymph # (Auto) (1.2-3.4) K/uL [place] # (Auto) (0.11-0.59) K/uL Eos # (Auto) (0-0.5) K/uL Baso # (Auto) (0-0.2) K/uL Immature Gran # (Auto) (0.00-0.02) K/uL VBG pH 7.49 H (7.36-7.41) VBG pCO2 32 L (38-50) mmHg VBG pO2 19 mmHg VBG HCO3 24 mmol/L VBG O2 Saturation < 60.0 % VBG Base Excess 1.6 mEq/L Barometric Pressure 731.3 mm/Hg POC Sodium (135-144) mmol/L Sodium (136-145) mmol/L POC Potassium (3.3-5.0) mmol/L Potassium (3.5-5.1) mmol/L POC Chloride (101-112) mmol/L Chloride (98-107) mmol/L Carbon Dioxide (21-32) mmol/L POC Total CO2 (24-31) mmol/L Anion Gap (3-11) POC Anion Gap (16-25) mmol/L POC BUN (7-18) mg/dl BUN (6-23) mg/dl Creatinine (0.6-1.4) mg/dl POC Creatinine (0.6-1.3) mg/dl Est Cr Clr Drug Dosing ml/min Est GFR ( Amer) ml/min Est GFR (Non-Af Amer) ml/min BUN/Creatinine Ratio (10-20) Glucose (70-99(Fasting)) mg/dl POC Glucose (70-99) mg/dl POC Glucose (other) (70-99) mg/dl Calcium (8.5-10.1) mg/dl POC Ioniz Calcium Stu (1.12-1.32) mmol/l Magnesium 1.8 (1.7-2.4) mg/dl Total Bilirubin (0.2-1.0) mg/dl AST (13-39) U/L ALT (7-52) U/L Alkaline Phosphatase (34-104) U/L Troponin I (0-0.04) ng/ml Total Protein (6.0-8.3) gm/dl Albumin (3.4-5.0) gm/dl Globulin (2.5-4.0) gm/dl Albumin/Globulin Ratio (0.9-2) Lipase (11-82) U/L SARS-CoV-2, RNA, NAAT NEGATIVE (NEGATIVE) 05/20/21 05/20/21 Range/Units 15:46 17:26 WBC (4.8-10.8) K/uL RBC (4.7-6.1) M/uL Hgb (14.0-18.0) g/dL POC Hgb (14.0-18.0) g/dl Hct (42-52) % POC Hct (42-52) % MCV (80-100) fL MCH (25-34) pg MCHC (32-36) g/dL RDW Std Deviation (36.4-46.3) fL RDW Coeff of Sadi (11.5-14.5) % Plt Count (130-400) K/uL MPV (7.4-10.4) fL Immature Gran % (Auto) % Neut % (Auto) % Lymph % (Auto) % [place] % (Auto) % Eos % (Auto) % Baso % (Auto) % Neut # (Auto) (1.4-6.5) K/uL Lymph # (Auto) (1.2-3.4) K/uL [place] # (Auto) (0.11-0.59) K/uL Eos # (Auto) (0-0.5) K/uL Baso # (Auto) (0-0.2) K/uL Immature Gran # (Auto) (0.00-0.02) K/uL VBG pH (7.36-7.41) VBG pCO2 (38-50) mmHg VBG pO2 mmHg VBG HCO3 mmol/L VBG O2 Saturation % VBG Base Excess mEq/L Barometric Pressure mm/Hg POC Sodium (135-144) mmol/L Sodium (136-145) mmol/L POC Potassium (3.3-5.0) mmol/L Potassium (3.5-5.1) mmol/L POC Chloride (101-112) mmol/L Chloride (98-107) mmol/L Carbon Dioxide (21-32) mmol/L POC Total CO2 (24-31) mmol/L Anion Gap (3-11) POC Anion Gap (16-25) mmol/L POC BUN (7-18) mg/dl BUN (6-23) mg/dl Creatinine (0.6-1.4) mg/dl POC Creatinine (0.6-1.3) mg/dl Est Cr Clr Drug Dosing ml/min Est GFR ( Amer) ml/min Est GFR (Non-Af Amer) ml/min BUN/Creatinine Ratio (10-20) Glucose (70-99(Fasting)) mg/dl POC Glucose 357 H* 372 H* (70-99) mg/dl POC Glucose (other) (70-99) mg/dl Calcium (8.5-10.1) mg/dl POC Ioniz Calcium Stu (1.12-1.32) mmol/l Magnesium (1.7-2.4) mg/dl Total Bilirubin (0.2-1.0) mg/dl AST (13-39) U/L ALT (7-52) U/L Alkaline Phosphatase (34-104) U/L Troponin I (0-0.04) ng/ml Total Protein (6.0-8.3) gm/dl Albumin (3.4-5.0) gm/dl Globulin (2.5-4.0) gm/dl Albumin/Globulin Ratio (0.9-2) Lipase (11-82) U/L SARS-CoV-2, RNA, NAAT (NEGATIVE) Administered Medications Discontinued Medications Sodium Chloride (Nss 1000ml) 1,000 mls @ 999 mls/hr IV .Q1H1M ONE Stop: 05/20/21 15:47 Last Admin: 05/20/21 15:15 Dose: 999 mls/hr Documented by: [id number] Insulin Human Regular (Novolin-R Insulin Per Unit Charge) 6 units IV NOW STA Stop: 05/20/21 16:06 Last Admin: 05/20/21 16:09 Dose: 6 units Documented by: [id number] Cosigned by: [id number] Ondansetron HCl (Ondansetron Inj 2 Mg/Ml 2 Ml Vial) 4 mg IV NOW STA Stop: 05/20/21 14:48 Last Admin: 05/20/21 15:15 Dose: 4 mg Documented by: [id number] Potassium Chloride (Potassium Chloride Crtab 20 Meq Tabcr) 40 meq PO NOW STA Stop: 05/20/21 15:53 Last Admin: 05/20/21 16:18 Dose: 40 meq Documented by: [id number] Imaging Data Radiologist's Impression: Chest X-Ray 05/20/21 14:47 XR chest 1V portable CLINICAL HISTORY: Chest Pain. COMPARISON STUDY: 06/01/2016 TECHNIQUE: 1 view of the chest FINDINGS: Single frontal view of the chest demonstrates the cardiomediastinal silhouette to be within normal limits. The lungs are clear of alveolar opacities. There is no evidence for pleural effusion. There is no evidence for vascular congestion. There is no acute osseous pathology. IMPRESSION: 1. No acute cardiopulmonary disease. ACT 112: Negative or not required by law. Electronically signed by: Ruddy Khan M.D. 05/20/2021 3:[address] 05/20/21 14:[address] DOSE: 614.27 mGy.cm HISTORY: dizzy TECHNIQUE: Multiaxial CT images of the head were performed without the use of intravenous contrast. Automated exposure control was utilized for this study. A dose lowering technique was utilized adhering to the principles of ALARA. Comparison: None. Findings: The paranasal sinuses and mastoid air cells are clear. The calvarium and skull base are intact. The ventricles and sulci are within normal limits. There is no mass, hematoma, midline shift, or acute infarct. Questional small hypodensity within the right frontal lobe on image 18 likely represents volume averaging with a normal sulcus. Impression: No acute intracranial abnormality. ACT 112: Negative or not required by law. Electronically signed by: Femi Chauhan M.D. 05/20/2021 4:16 PM Discharge Plan Visit Data Chief Complaint: Chest Pain Stated Complaint: CHEST PAIN, OFF BALANCE, DIZZY ED Provider: Jero Hunt Discharge Problem: Dizziness, Slurred speech, Confusion, Hyperglycemia Forms Stand Alone Forms: My [facility] Prescriptions Prescriptions: No Action metformin 500 mg tablet 1,000 mg PO BID RF: 0 albuterol sulfate 2.5 mg /3 mL (0.083 %) Solution For Nebulization 2.5 mg INHALATION DIRECTED PRN (Reason: Shortness Of Breath Or Wheezing) RF: 0 isosorbide mononitrate 30 mg tablet extended release 24 hr 30 mg PO DAILY RF: 0 clopidogrel 75 mg tablet 75 mg PO DAILY RF: 0 tamsulosin 0.4 mg capsule 0.4 mg PO DAILY RF: 0 amlodipine 10 mg tablet 10 mg PO DAILY RF: 0 nitroglycerin [Nitrostat] 0.4 mg Tablet, Sublingual 0.4 mg sublingual DIRECTED RF: 0 gabapentin 300 mg capsule 300 mg PO HS RF: 0 aspirin 81 mg Tablet,Chewable 81 mg PO DAILY RF: 0 losartan 100 mg tablet 100 mg PO DAILY RF: 0 ezetimibe 10 mg tablet 10 mg PO DAILY RF: 0 insulin aspart U-100 [Novolog Flexpen U-100 Insulin] 100 unit/mL (3 mL) insulin pen 10 unit SUBCUT TIDM RF: 0 metoprolol tartrate 25 mg tablet 37.5 mg PO BID RF: 0 Lantus Solostar U-100 Insulin 100 unit/mL (3 mL) insulin pen 38 unit SUBCUT HS RF: 0 Referrals Referrals: Chad Connors V., [Primary Care Provider] -
[2021-05-20 14:59] LABS: Basophils # (auto) 0.05 K/uL (0-0.2); Basophils % (auto) 0.5 %; Eosinophils # (auto) 0.04 K/uL (0-0.5); Eosinophils % (auto) 0.4 %; Hematocrit (blood only) 41.6 % (42-52); Hemoglobin 14.8 g/dL (14.0-18.0); Immature Granulocytes # (auto) 0.02 K/uL (0.00-0.02); Immature Granulocytes % (auto) 0.2 %; Lymphocytes # (auto) 4.04 K/uL (1.2-3.4); Lymphocytes % (auto) 38.6 %; Mean Corpuscular Hemoglobin 28.1 pg (25-34); Mean Corpuscular Hgb Conc 35.6 g/dL (32-36); Mean Corpuscular Volume 78.9 fL (80-100); Mean Platelet Volume 12.8 fL (7.4-10.4); Monocytes # (auto) 0.64 K/uL (0.11-0.59); Monocytes % (auto) 6.1 %; Neutrophils # (auto) 5.68 K/uL (1.4-6.5); Neutrophils % (auto) 54.2 %; Platelet Count 241 K/uL (130-400); RDW Coefficient of Variation 13.1 % (11.5-14.5); RDW Standard Deviation 37.3 fL (36.4-46.3); Red Blood Count 5.27 M/uL (4.7-6.1); White Blood Count 10.47 K/uL (4.8-10.8)
[2021-05-20 15:00] LABS: iSTAT Creatinine 1.5 mg/dl (0.6-1.3); iSTAT Hemoglobin 14.6 g/dl (14.0-18.0); iSTAT Ionized Calcium 1.12 mmol/l (1.12-1.32); iSTAT Potassium 3.3 mmol/L (3.3-5.0)
[2021-05-20 15:16] LABS: Base Excess VBG 1.6 mEq/L; HCO3 VBG 24 mmol/L; PCO2 VBG 32 mmHg (38-50); PO2 VBG 19 mmHg; pH VBG 7.49 (7.36-7.41)
[2021-05-20 15:17] LABS: Oxygen Saturation VBG < 60.0 %
[2021-05-20 15:26] LABS: Alanine Aminotransferase 9 U/L (7-52); Albumin Globulin Ratio 1.5 (0.9-2); Albumin Level 4.1 gm/dl (3.4-5.0); Alkaline Phosphatase 107 U/L (34-104); Anion Gap 14 (3-11); Aspartate Aminotransferase 11 U/L (13-39); BUN Creatinine Ratio 12.3 (10-20); Bilirubin,Total 0.8 mg/dl (0.2-1.0); Blood Urea Nitrogen 19 mg/dl (6-23); Calcium 9.1 mg/dl (8.5-10.1); Carbon Dioxide 21 mmol/L (21-32); Chloride 97 mmol/L (98-107); Creatinine Clr Calc Pharmacy 44.4 ml/min; Est GFR (African American) 53.7 ml/min; Est GFR (Non-African American) 46.3 ml/min; Globulin 2.8 gm/dl (2.5-4.0); Glucose 420 mg/dl (70-99(Fasting)); Lipase 14 U/L (11-82); Potassium 3.3 mmol/L (3.5-5.1); Sodium 132 mmol/L (136-145); Total Protein 6.9 gm/dl (6.0-8.3); Troponin I < 0.03 ng/ml (0-0.04)
[2021-05-20] MEDS ORDERED: NovoLIN-R INSULIN PER UNIT CHARGE IV STA ×2 (15:34→16:05)
--- NOTE | 2021-05-20 15:44 | Electrocardiogram Report ---
Test Reason : Blood Pressure : / mmHG Vent. Rate : 062 BPM Atrial Rate : 062 BPM P-R Int : 146 ms QRS Dur : 104 ms QT Int : 444 ms P-R-T Axes : 050 -12 116 degrees QTc Int : 450 ms Sinus rhythm with occasional Premature ventricular complexes Poor R wave progression, consider anterior CT vs. lead placement vs. LVH Left ventricular hypertrophy with repolarization abnormality Abnormal ECG When compared with ECG of 01-JUN-2016 13:33, Premature ventricular complexes are now Present T wave inversion less evident in Anterior leads Confirmed by Evaristo Shay ([id number]) on 05/20/2021 3:43:55 PM Referred By: Confirmed By:Evaristo Shay
--- NOTE | 2021-05-20 15:50 | XRay Report ---
XR chest 1V portable CLINICAL HISTORY: Chest Pain. COMPARISON STUDY: 06/01/2016 TECHNIQUE: 1 view of the chest FINDINGS: Single frontal view of the chest demonstrates the cardiomediastinal silhouette to be within normal li mits. The lungs are clear of alveolar opacities. There is no evidence for pleural effusion. There is no evidence for vascular congestion. There is no acute osseous pathology. IMPRESSION: 1. No acute cardiopulmonary disease. ACT 112: Negative or not required by law. Electronically signed by: Ruddy Khan M.D. 05/20/2021 3:49 PM
[2021-05-20] MEDS ORDERED: POTASSIUM CHLORIDE CRTAB 20 MEQ TABCR PO STA (15:52)
--- NOTE | 2021-05-20 16:18 | CT Scan Report ---
HEAD CT NONCONTRAST CT DOSE: 614.27 mGy.cm HISTORY: dizzy TECHNIQUE: Multiaxial CT images of the head were performed without the use of intravenous contrast. A utomated exposure control was utilized for this study. A dose lowering technique was utilized adheri ng to the principles of ALARA. Comparison: None. Findings: The paranasal sinuses and mastoid air cells are clear. The calvarium and skull base are int act. The ventricles and sulci are within normal limits. There is no mass, hematoma, midline shift, or acute infarct. Questional small hypodensity within the right frontal lobe on image 18 likely represe nts volume averaging with a normal sulcus. Impression: No acute intracranial abnormality. ACT 112: Negative or not required by law. Electronically signed by: Femi Chauhan M.D. 05/20/2021 4:16 PM
--- NOTE | 2021-05-20 17:51 | History & Physical Report ---
Date of Service May 20, 2021 Assessment & Plan (1) Stroke-like symptom: Plan: Patient is 65-year-old male with PMH CAD, history of NSTEMI, status post multiple cardiac stents, uncontrolled DM II, HTN, dyslipidemia, PAUL presented to ER with complaint of dizziness episode followed by slurred speech, rambling speech, nausea and vomiting. Upon arrival to ER patient with normal speech and is alert and oriented x3. In ER patient afebrile, vitals stable. No leukocytosis. K: 3.3, glucose: 420, otherwise no significant electrolyte abnormality, troponin: Negative CT head: No acute intracranial abnormality CTA head and neck pending Tele to monitor for arrhythmias DDX: TIA vs CVA, hypoglycemic episode, however glucose significantly elevated in ER Lipid panel, A1c in AM MRI brain Echo with bubble study Fall and aspiration precautions PT/OT consult Continue Plavix, ASA Allow permissive HTN will hold home BP meds Neurology consult (2) Hyperglycemia: (3) Uncontrolled type II diabetes mellitus: Plan: A1c: 14.1 on 05/2020. Patient reports blood sugars range >300s has been tried on various agents however has been unable to tolerate them. Currently following with [facility] outpatient In ER random glucose: 420. Was given 6 units insulin R with repeat glucose 372 Hold home agents IVF plus KCl Basal bolus insulin per protocol. Will consult glycemic pharmacy for assistance with glycemic management Patient may benefit from outpatient endocrinology referral (4) Hypokalemia: Plan: K: 3.3. Magnesium WNL In ER given 40 mEq oral KCl Receiving KCl in IV fluids Monitor Pseudohyponatremia Corrected sodium 137 for glucose of 420 (5) TOMA (acute kidney injury): Plan: Cr: 1.5. Baseline 1.0 IVF Monitor renal functions, avoid nephrotoxic agents when possible (6) CAD (coronary artery disease): Plan: History NSTEMI 2014, 2017, status post multivessel stents x5 as had declined CABG. S/p MARY to LAD in 05/2020 Denies chest pain, shortness of breath Continue aspirin, Plavix, isosorbide, metoprolol tartrate (7) Hypertension: Plan: BP stable Continue metoprolol tartrate with holding parameters Losartan, amlodipine on hold secondary to allowing permissive hypertension (8) Dyslipidemia: Plan: Continue Zetia (9) PAUL (obstructive sleep apnea): Plan: Not on CPAP DVT Prophylaxis SCDs Full Code as per discussion with pt Follows with Dr Connors for routine care Pt was seen and care coordinated with Dr Barbosa. See addendum History of Present Illness Chief Complaint: Dizziness Primary Care Provider: Chad Connors DO Patient is 65-year-old male with PMH CAD, history of NSTEMI, status post multiple cardiac stents, uncontrolled DM II, HTN, dyslipidemia, PAUL presented to ER with complaint of dizziness episode. Patient states this morning woke up and felt his normal self. Reports took morning medications did not eat breakfast. Reports was out shopping today when had onset of dizziness and feeling lightheaded. He reports he has had episodes of similar dizziness/lightheadedness in the past when he would take his medications and not eat. He reports he thought this was a similar episode and went to a restaurant. Patient remembers going to the restaurant and sitting down at the table and getting a menu and ordering food. He reports shortly after ordering food his reports that patient started with rambling speech, slurred speech. Patient states remembers feeling nauseated and getting up to go to the bathroom and reports vomiting. He reports he feels like he was off balance for the past week. Denies any recent falls. Patient denies any chest pain, shortness of breath. Since being in ER patient with normal speech and is alert and oriented x3. He is reporting left frontal headache, blurry vision right eye worse than left eye, and paresthesias of bilateral hands and fingers. He reports chronic neuropathy of bilateral feet. He is unsure if he is having any lower extremity weakness. Does not feel he has upper extremity weakness. Denies any history of stroke or TIA in the past. Patient reports that his blood sugars run in the 300s to 400s at baseline and often his meter reads "high". He reports being on multiple different medications denies fever/chills, diaphoresis, diarrhea, c onstipation, SMITH, dizziness, syncope, vision changes, neck pain, CP, SOB, orthopnea, palpitations, cough, sore throat, choking, otalgia, rhinorrhea, abdominal pain, paresthesias, weakness, extremity weakness, extremity edema, rashes, urinary symptoms. Allergies Allergy/AdvReac Type Severity Reaction Status Date / Time acetaminophen Allergy Unknown . Unverified 05/20/21 16:08 methadone Allergy Unknown . Unverified 05/20/21 16:08 oxycodone Allergy Unknown rash Unverified 05/20/21 20:37 propoxyphene Allergy Unknown . Unverified 05/20/21 16:08 empagliflozin Allergy Verified 05/20/21 20:37 [From Jardiance] sitagliptin [From Januvia] Allergy Verified 05/20/21 20:37 semaglutide [From Ozempic] AdvReac Verified 05/20/21 20:37 Home Medications Medication Instructions Recorded Confirmed Type albuterol sulfate 2.5 mg INHALATION DIRECTED PRN 05/20/21 05/20/21 History amlodipine 10 mg tablet 10 mg PO DAILY 05/20/21 05/20/21 History aspirin 81 mg chewable tablet 81 mg PO DAILY 05/20/21 05/20/21 History clopidogrel 75 mg tablet 75 mg PO DAILY 05/20/21 05/20/21 History ezetimibe 10 mg tablet 10 mg PO DAILY 05/20/21 05/20/21 History gabapentin 300 mg capsule 300 mg PO HS 05/20/21 05/20/21 History insulin aspart U-100 100 unit/mL 10 unit SUBCUT TIDM 05/20/21 05/20/21 History (3 mL) subcutaneous pen (Novolog Flexpen U-100 Insulin aspart) insulin glargine 100 unit/mL (3 38 unit SUBCUT HS 05/20/21 05/20/21 History mL) subcutaneous pen (Lantus Solostar U-100 Insulin) isosorbide mononitrate 30 mg 30 mg PO DAILY 05/20/21 05/20/21 History tablet,extended release 24 hr losartan 100 mg tablet 100 mg PO DAILY 05/20/21 05/20/21 History metformin 500 mg tablet 1,000 mg PO BID 05/20/21 05/20/21 History metoprolol tartrate 25 mg tablet 37.5 mg PO BID 05/20/21 05/20/21 History nitroglycerin 0.4 mg sublingual 0.4 mg SUBLINGUAL DIRECTED 05/20/21 05/20/21 History tablet (Nitrostat) tamsulosin 0.4 mg capsule 0.4 mg PO DAILY 05/20/21 05/20/21 History Past Med/Surg History Medical History (Updated 05/20/21 @ 20:47 by Laina Lipscomb PA-C) CAD (coronary artery disease) Dyslipidemia Hypertension PAUL (obstructive sleep apnea) Uncontrolled type II diabetes mellitus Surgical History (Updated 05/20/21 @ 20:39 by Laina Lipscomb PA-C) History of cardiac cath Family History (Updated 05/20/21 @ 20:39 by Laina Lipscomb PA-C) Brother Diabetes Social History (Updated 05/20/21 @ 20:40 by Laina Lipscomb PA-C) Smoking Status: Former smoker Hx Alcohol Use: No Hx Substance Use: No Feels Safe at Home: Yes Review of Systems Review of Systems: All systems reviewed & are unremarkable except as noted in HPI & below Physical Exam Physical Exam: General: no acute distress, WDWN Head: normocephalic, atraumatic Eyes: PERRL, EOM's intact, conjunctiva non-injected, anicteric ENT: hard of hearing, normal inspection external ears, nose, mucous membranes moist Neck: supple, trachea midline Lungs: clear, no respiratory distress, no wheezing/rhonchi/rales CV: RRR, no murmur, no pretibial edema Abd: normal BS, soft, non-tender Ext: no cyanosis, no calf tenderness Neuro: A&O x 3, normal affect, No nystagmus, face is strong and symmetric, no dysarthria, Shoulder shrug intact, Tongue is midline, normal movement, no fasciculations. BUE strength 5/5. RLE: strength 4/5, LLE: strength 5/5 Skin: warm, dry Results & Data Results & Data ([facility]) Vital Signs (Past 12 Hours) Vital Signs Temp Pulse Pulse Resp BP BP Pulse Ox 05/20/21 17:28 53 L 12 116/68 98 05/20/21 14:56 56 L 24 100 05/20/21 14:40 36.7 C 62 55 L 24 106/64 106/64 100 Laboratory Results Short CBC 05/20/21 Range/Units 14:43 WBC 10.47 (4.8-10.8) K/uL Hgb 14.8 (14.0-18.0) g/dL Hct 41.6 L (42-52) % Plt Count 241 (130-400) K/uL BMP 05/20/21 14:43 Sodium 132 L Potassium 3.3 L Chloride 97 L Carbon Dioxide 21 BUN 19 Creatinine 1.55 H Glucose 420 H* Calcium 9.1 Cardiac Enzymes 05/20/21 Range/Units 14:43 Troponin I < 0.03 (0-0.04) ng/ml Liver Function 05/20/21 Range/Units 14:43 Total Bilirubin 0.8 (0.2-1.0) mg/dl AST 11 L (13-39) U/L ALT 9 (7-52) U/L Alkaline Phosphatase 107 H (34-104) U/L Albumin 4.1 (3.4-5.0) gm/dl Diagnostic Findings Chest X-Ray 05/20/21 14:47 XR chest 1V portable CLINICAL HISTORY: Chest Pain. COMPARISON STUDY: 06/01/2016 TECHNIQUE: 1 view of the chest FINDINGS: Single frontal view of the chest demonstrates the cardiomediastinal silhouette to be within normal limits. The lungs are clear of alveolar opacities. There is no evidence for pleural effusion. There is no evidence for vascular congestion. There is no acute osseous pathology. IMPRESSION: 1. No acute cardiopulmonary disease. ACT 112: Negative or not required by law. Electronically signed by: Ruddy Khan M.D. 05/20/2021 3:[address] 05/20/21 14:[address] DOSE: 614.27 mGy.cm HISTORY: dizzy TECHNIQUE: Multiaxial CT images of the head were performed without the use of intravenous contrast. Automated exposure control was utilized for this study. A dose lowering technique was utilized adhering to the principles of ALARA. Comparison: None. Findings: The paranasal sinuses and mastoid air cells are clear. The calvarium and skull base are intact. The ventricles and sulci are within normal limits. There is no mass, hematoma, midline shift, or acute infarct. Questional small hypodensity within the right frontal lobe on image 18 likely represents volume averaging with a normal sulcus. Impression: No acute intracranial abnormality. ACT 112: Negative or not required by law. Electronically signed by: Femi Chauhan M.D. 05/20/2021 4:16 PM Code Status & VTE Plan VTE Prophylaxis Plan VTE Prophylaxis will be ordered: Yes Supervising Physician Co-Signing Physician Notes Patient is a 65-year-old male with history of coronary artery disease, diabetes mellitus and other medical problems presents with history of dizziness, transient slurred speech, nausea, vomiting, balance issues. He states having difficulty with ambulation secondary to balance issues for the past week but denies any falls. He also reports having left-sided frontal headache, blurry vision, tingling paresthesias of fingers bilaterally. Please review HPI for complete details of presentation. At work suggestive of hyponatremia 132, hypokalemia 3.3, hypochloremia 97, anion gap 14, creatinine 1.5, hyperglycemia 420. Neck CTA showed approximately 30% focal stenosis within the proximal bilateral internal carotid arteries due to calcified plaque. 2 cm periapical lucency within the right anterior maxilla noted. CT head showed no acute findings. On exam patient is moderately built and nourished, no apparent distress, normocephalic atraumatic, EOMI, normal breath sounds, clear to auscultation, S1-S2, no murmur, no pedal edema, abdomen soft, nontender, normal bowel sounds, alert, awake, oriented, no facial deformity, right lower extremity 4/5. Otherwise grossly no focal deficits. Patient is admitted for management of strokelike symptoms. Likely secondary to TIA versus CVA, secondary to hyperglycemia. Will obtain MRI brain. Neurology consulted. PT OT, speech eval. Continue aspirin, Plavix, statin. Insulin therapy for hyperglycemia. I personally reviewed the record. Patient is interviewed and examined at bedside. Patient's care is coordinated with Laina Lipscomb PA-C. Please refer to the documentation above for details of patient's presentation and for discussion of other issues.
[2021-05-20] MEDS ORDERED: NITROGLYCERIN SL 0.4 MG/TAB TAB SL PRN (19:40)
[2021-05-20] MEDS ORDERED: NSS + 20MEQ KCL 20 MEQ/1,000 ML BAG IV SCH (19:40)
[2021-05-20] MEDS ORDERED: DEXTROSE 50% 50 ML SYRINGE IV PRN (19:40)
[2021-05-20] MEDS ORDERED: CARBOHYDRATES FOR HYPOGLYCEMIA PO PRN (19:40)
[2021-05-20] MEDS ORDERED: PHARMACIST DISCHARGE MED REC CONSULT PRN (19:40)
[2021-05-20] MEDS ORDERED: PHARMACY GLYCEMIC MGMT CONSULT PRN (19:40)
[2021-05-20] MEDS ORDERED: GLUCAGON FOR INJ 1 MG VIAL SQ PRN (19:40)
[2021-05-20] MEDS ORDERED: GLUCOSE 10 TABS/TUBE PO PRN (19:40)
[2021-05-20] MEDS ORDERED: ONDANSETRON INJ 2 MG/ML 2 ML VIAL IV PRN (19:40)
[2021-05-20] MEDS ORDERED: GLUCOSE 40% GEL 15 GM TUBE PO PRN (19:40)
[2021-05-20] MEDS ORDERED: OPTIRAY 320 125ml IV ONE (20:31)
[2021-05-20] MEDS ORDERED: INSULIN GLARGINE SOLOSTAR 100 UNITS/ML 3 ML PEN SC SCH (21:00)
--- NOTE | 2021-05-20 21:15 | CT Scan Report ---
HEAD & NECK CTA HISTORY: dizzy and slurred speech TECHNIQUE: Multiaxial CT images of the head were performed following the intravenous administration o f contrast to evaluate the major cerebral vessels. Multiaxial CT images of the neck were also perform ed following the intravenous administration of contrast to evaluate the major cervical vessels. Maxim um intensity projection images were also obtained. A dose lowering technique was utilized adhering to the principles of ALARA. COMPARISON: Head CT 05/20/2021. FINDINGS: There is no mass, hematoma, midline shift, or acute infarct. Visualized intracranial internal carotid arteries, distal vertebral arteries, and basilar artery are widely patent. There is no significant s tenosis, occlusion, or aneurysm seen within the bilateral ACAs, MCAs, or adolescent counselor. Small retention cyst w ithin the left maxillary sinus. The mastoid air cells are clear. There is a 2 cm periapical lucency w ithin the right anterior maxilla. The major dural venous sinuses are patent. There is a hypoplastic r ight A1 segment. This is considered to be a normal variant. The aortic arch and proximal great vessels are widely patent. There is no occlusion or dissection i dentified within the bilateral common carotid, internal carotid, or vertebral arteries. Moderate calc ified plaque within the bilateral proximal internal carotid arteries. This results in approximately 3 0% focal stenosis within the proximal internal carotid arteries. IMPRESSION: 1. No significant stenosis, occlusion, or aneurysm within the [place]. 2. No occlusion or dissection identified within the carotid or vertebral arteries. 3. There is approximately 30% focal stenosis within the proximal bilateral internal carotid arteries due to the calcified plaque. 4. A 2 cm periapical lucency within the right anterior maxilla. ACT 112: Negative or not required by law. Electronically signed by: Femi Chauhan M.D. 05/20/2021 9:12 PM
--- NOTE | 2021-05-20 21:15 | CT Scan Report ---
HEAD & NECK CTA HISTORY: dizzy and slurred speech TECHNIQUE: Multiaxial CT images of the head were performed following the intravenous administration o f contrast to evaluate the major cerebral vessels. Multiaxial CT images of the neck were also perform ed following the intravenous administration of contrast to evaluate the major cervical vessels. Maxim um intensity projection images were also obtained. A dose lowering technique was utilized adhering to the principles of ALARA. COMPARISON: Head CT 05/20/2021. FINDINGS: There is no mass, hematoma, midline shift, or acute infarct. Visualized intracranial internal carotid arteries, distal vertebral arteries, and basilar artery are widely patent. There is no significant s tenosis, occlusion, or aneurysm seen within the bilateral ACAs, MCAs, or neurology tech. Small retention cyst w ithin the left maxillary sinus. The mastoid air cells are clear. There is a 2 cm periapical lucency w ithin the right anterior maxilla. The major dural venous sinuses are patent. There is a hypoplastic r ight A1 segment. This is considered to be a normal variant. The aortic arch and proximal great vessels are widely patent. There is no occlusion or dissection i dentified within the bilateral common carotid, internal carotid, or vertebral arteries. Moderate calc ified plaque within the bilateral proximal internal carotid arteries. This results in approximately 3 0% focal stenosis within the proximal internal carotid arteries. IMPRESSION: 1. No significant stenosis, occlusion, or aneurysm within the [place]. 2. No occlusion or dissection identified within the carotid or vertebral arteries. 3. There is approximately 30% focal stenosis within the proximal bilateral internal carotid arteries due to the calcified plaque. 4. A 2 cm periapical lucency within the right anterior maxilla. ACT 112: Negative or not required by law. Electronically signed by: Femi Chauhan M.D. 05/20/2021 9:12 PM
[2021-05-20] MEDS: GABAPENTIN 300 MG CAP PO SCH (22:34)
[2021-05-20] MEDS: METOPROLOL TARTRATE 25 MG TAB PO SCH (22:35)
[2021-05-20] MEDS: INSULIN ASPART PER UNIT SC SCH (23:00)
[2021-05-21] MEDS: INSULIN ASPART PER UNIT SC SCH ×6 (00:44→21:14)
[2021-05-21 06:34] LABS: Hematocrit (blood only) 37.3 % (42-52); Mean Corpuscular Hgb Conc 34.9 g/dL (32-36); Mean Corpuscular Volume 80.2 fL (80-100); Mean Platelet Volume 12.7 fL (7.4-10.4); Platelet Count 195 K/uL (130-400); RDW Coefficient of Variation 13.3 % (11.5-14.5); RDW Standard Deviation 38.7 fL (36.4-46.3); Red Blood Count 4.65 M/uL (4.7-6.1); White Blood Count 7.09 K/uL (4.8-10.8)
[2021-05-21 06:54] LABS: BUN Creatinine Ratio 16.2 (10-20); Calcium 8.2 mg/dl (8.5-10.1); Creatinine Clr Calc Pharmacy 58.8 ml/min; Est GFR (African American) 75.4 ml/min; Potassium 3.8 mmol/L (3.5-5.1)
--- NOTE | 2021-05-21 08:13 | Magnetic Resonance Report ---
MRI OF THE BRAIN WITHOUT CONTRAST CLINICAL HISTORY: Stroke symptoms. Slurred speech. Dizziness. COMPARISON STUDY: Head CT and CTA of the head May 20, 2021. TECHNIQUE: Utilizing a 1.5 [place]ow magnet and dedicated coil, multiplanar, multiecho imaging of the bra in was performed without IV contrast. FINDINGS: There are no foci of restricted diffusion to suggest acute infarct. No acute intracranial h emorrhage, midline shift or mass effect is present. Ventricular system is unremarkable. Basal cistern s are patent. There are no extra-axial collections. No intracranial masses are identified on this une nhanced exam. Small focus of encephalomalacia within the right frontal lobe is present. This is chron ic and may reflect an old infarct. White matter T2 hyperintense foci suggest mild small vessel diseas e. Calvarial signal is within normal limits. Orbits are unremarkable. There is no evidence for sinusi tis. IMPRESSION: 1. No acute intracranial findings. 2. White matter T2 hyperintense foci which favor mild small vessel disease. 3. Small focus of encephalomalacia within the right frontal lobe which may reflect an old infarct. ACT 112: Negative or not required by law. Electronically signed by: Chris Zapata M.D. 05/21/2021 8:12 AM
--- NOTE | 2021-05-21 08:15 | Neurology Consultation ---
Date of Consultation May 21, 2021 Assessment & Plan (1) Stroke-like symptom: 1. MRI no acute findings 2. CTA head/neck 30 % stenosis bilateral ICA 3. TTE if not already done 4. PT/OT speech- if patient is still dizzy may need Michelle 5. Continue aspirin 81 mg and plavix 75 mg for now 6. optimize HTN HLD DM LDL <70 will follow up with neurology 4-6 weeks after discharge. (2) Dizziness: 1. may need Michelle if continued however may be protracted migraine. vascular migraine is a consideration (3) Uncontrolled type II diabetes mellitus: 1. optimize Supervising Physician Co-Signing Physician Notes I have seen and discussed above patient with Dr Raúl Reyes, neurology I evaluated Raúl today in the company of Hansa Mohan PA-C. History is as outlined but the patient in retrospect is almost total amnesia for most of the events that transpired after he had entered the [employer] restaurant other than little vignettes of time when he entered our ER and was holding onto a trash barrel and briefly when he was in the bathroom at [employer] He is now back to his baseline he has a little left frontal headache and he reveals a history of some minor vertiginous episodes in the past but states that this event was certainly not similar them he also relates a remote history of migraine headaches previously treated with Maxalt and with visual aura but does not think this was a migraine either He has had episodes of low-grade confusion when his blood sugar gets over 400 and also has episodes of hypoglycemia when his sugars run less than 300 least according to the history he gives us today His MRI shows no evidence of an acute infarction relatively little white matter disease and his CT angiographic studies are normal. An echocardiographic study is pending He is already on dual antiplatelet therapy The event of yesterday remains of uncertain cause. It was quite protracted and elements of a suggest at least a variant of transient global amnesia but the accompanying headache that was present I believe before the onset of the confusion coupled with his history of migraines and coupled with the absolutely normal imaging studies and lack of any clear evidence for sources of embolization based on current studies might bring to mind the possibility of a late life onset confusional migraine picture He really denies any vertigo per se and I do not think we need to consider vestibular therapy at least at this time unless his story would change Our suggestions would be to go ahead with the echocardiographic study continue to social worker aide and if he remains stable discharge him to home tomorrow and observe for further events of a similar type. At this point neurology really does need to follow-up unless he would have recurrent events We are going to sign off the case but will be happy to reassess him should anything change between now and the time of his discharge Raúl Reyes MD History of Present Illness Reason for Consultation: stroke like symptoms Requesting Physician: Deejay Lopes MD Attending Physician: Deejay Lopes MD History of Present Illness Raúl is a 65 year old male with PMH CAD, NSTEMI, multiple cardiac stents, uncontrolled DM II, HTN, HLD, PAUL presented to [facility] ED 05/20/21 with complaint of dizziness episode.He woke up and felt his normal self. He took morning medications did not eat breakfast.He was out shopping at [facility] and had onset of dizziness and feeling lightheaded.He has had episodes of similar dizziness/lightheadedness in the past when he would take his medications and not eat.He then went to a [employer] and was sitting down at the table and getting a menu and ordering food.His states he had rambling speech, slurred speech. He remembers feeling nauseated and getting up to go to the bathroom and reports vomiting. He was off balance for the past week.In the ER patient with normal speech and is alert and oriented x3. He is reporting left frontal headache, blurry vision right eye worse than left eye, and paresthesias of bilateral hands and fingers. He has chronic neuropathy of bilateral feet.Does not feel he has upper extremity weakness. Denies any history of stroke or TIA in the past. denies CP, SOB, N, V. Allergies Allergy/AdvReac Type Severity Reaction Status Date / Time acetaminophen Allergy Unknown . Unverified 05/20/21 16:08 methadone Allergy Unknown . Unverified 05/20/21 16:08 oxycodone Allergy Unknown rash Unverified 05/20/21 20:37 propoxyphene Allergy Unknown . Unverified 05/20/21 16:08 empagliflozin Allergy Verified 05/20/21 20:37 [From Jardiance] sitagliptin [From Januvia] Allergy Verified 05/20/21 20:37 semaglutide [From Ozempic] AdvReac Verified 05/20/21 20:37 Home Medications Medication Instructions Recorded Confirmed Type albuterol sulfate 2.5 mg INHALATION DIRECTED PRN 05/20/21 05/20/21 History amlodipine 10 mg tablet 10 mg PO DAILY 05/20/21 05/20/21 History aspirin 81 mg chewable tablet 81 mg PO DAILY 05/20/21 05/20/21 History clopidogrel 75 mg tablet 75 mg PO DAILY 05/20/21 05/20/21 History ezetimibe 10 mg tablet 10 mg PO DAILY 05/20/21 05/20/21 History gabapentin 300 mg capsule 300 mg PO HS 05/20/21 05/20/21 History insulin aspart U-100 100 unit/mL 10 unit SUBCUT TIDM 05/20/21 05/20/21 History (3 mL) subcutaneous pen (Novolog Flexpen U-100 Insulin aspart) insulin glargine 100 unit/mL (3 38 unit SUBCUT HS 05/20/21 05/20/21 History mL) subcutaneous pen (Lantus Solostar U-100 Insulin) isosorbide mononitrate 30 mg 30 mg PO DAILY 05/20/21 05/20/21 History tablet,extended release 24 hr losartan 100 mg tablet 100 mg PO DAILY 05/20/21 05/20/21 History metformin 500 mg tablet 1,000 mg PO BID 05/20/21 05/20/21 History metoprolol tartrate 25 mg tablet 37.5 mg PO BID 05/20/21 05/20/21 History nitroglycerin 0.4 mg sublingual 0.4 mg SUBLINGUAL DIRECTED 05/20/21 05/20/21 History tablet (Nitrostat) tamsulosin 0.4 mg capsule 0.4 mg PO DAILY 05/20/21 05/20/21 History Patient History Medical History (Updated 05/20/21 @ 20:47 by Laina Lipscomb PA-C) CAD (coronary artery disease) Dyslipidemia Hypertension PAUL (obstructive sleep apnea) Uncontrolled type II diabetes mellitus Surgical History (Updated 05/20/21 @ 20:39 by Laina Lipscomb PA-C) History of cardiac cath Family History (Updated 05/20/21 @ 20:39 by Laina Lipscomb PA-C) Brother Diabetes Social History (Updated 05/20/21 @ 20:40 by Laina Lipscomb PA-C) Smoking Status: Unknown if ever smoked Smoking End Date: has chewed in the past; Second Hand Exposure: No; Do You Dip or Chew Tobacco: No; Tobacco Cessation Education Requested by Patient: No Hx Alcohol Use: No Hx Substance Use: No Preferred Language: Spanish Communication Ability: Effective Commissioning Manager Required: No Beliefs That Will Affect Care: None Current Living Situation: Spouse Current Living Situation Comment: lives with Other Information That Helps Us Care for You: No Feels Safe at Home: Yes Safety Concerns: Feels Safe At This Time Assistive Devices: None Review of Systems Review of Systems: All systems reviewed & are unremarkable except as noted in HPI & below Physical Exam Physical Exam: Physical Exam: Constitutional: appearance over nourished Ears, Nose, Mouth and Throat: mucous membranes moist, no injection and skin normal, eyes normal Cardiovascular: normal S-1 and S-2 and regular rate and rhythm Respiratory: clear to auscultation (CTA) and no rales, rhonchi or wheeze Musculoskeletal: no peripheral edema and good distal pulses Skin: no stigmata of neurocutaneous disease noted and normal and intact Eyes: extraocular muscles intact (EOMI) NEUROLOGIC EXAMINATION: Mental status: Alert and interactive Oriented to full date and location Oriented to person Speech fluent with no evidence of aphasia Cranial Nerves smile eye brow raise symmetric Reflexes: Deep tendon reflexes were symmetrical and graded 2/5. Sensory: vibration light and cool touch intact Coordination: finger to nose Gait/Stance: Posture lying in bed. Gait no assessed motor: Negative for pronator drift of out stretched arms with eyes closed. Strength: normal 5/5 throughout Results & Data ([facility]) Vital Signs (Past 12 Hours) Vital Signs Temp Pulse Pulse Resp BP Pulse Ox 05/21/21 07:49 61 05/21/21 07:22 36.7 C 63 18 129/73 92 05/21/21 03:38 36.5 C 58 L 18 111/65 93 05/20/21 23:59 63 05/20/21 23:40 69 05/20/21 22:56 36.5 C 69 18 123/70 95 Laboratory Results Abnormal lab results 05/20/21 05/20/21 05/20/21 Range/Units 14:43 14:43 14:47 RBC (4.7-6.1) M/uL Hgb (14.0-18.0) g/dL Hct 41.6 L (42-52) % MCV 78.9 L (80-100) fL MPV 12.8 H (7.4-10.4) fL Lymph # (Auto) 4.04 H (1.2-3.4) K/uL [place] # (Auto) 0.64 H (0.11-0.59) K/uL VBG pH (7.36-7.41) VBG pCO2 (38-50) mmHg Sodium 132 L (136-145) mmol/L Potassium 3.3 L (3.5-5.1) mmol/L POC Chloride 97 L (101-112) mmol/L Chloride 97 L (98-107) mmol/L POC Total CO2 22 L (24-31) mmol/L Anion Gap 14 H (3-11) POC BUN 19 H (7-18) mg/dl Creatinine 1.55 H (0.6-1.4) mg/dl POC Creatinine 1.5 H (0.6-1.3) mg/dl Glucose 420 H* (70-99(Fasting)) mg/dl POC Glucose (70-99) mg/dl POC Glucose (other) 422 H* (70-99) mg/dl Calcium (8.5-10.1) mg/dl AST 11 L (13-39) U/L Alkaline Phosphatase 107 H (34-104) U/L Triglycerides (0-150) mg/dl VLDL Cholesterol, Calc (0-30) mg/dl Cholesterol/HDL Ratio (0-5) 05/20/21 05/20/21 05/20/21 Range/Units 15:03 15:46 17:26 RBC (4.7-6.1) M/uL Hgb (14.0-18.0) g/dL Hct (42-52) % MCV (80-100) fL MPV (7.4-10.4) fL Lymph # (Auto) (1.2-3.4) K/uL [place] # (Auto) (0.11-0.59) K/uL VBG pH 7.49 H (7.36-7.41) VBG pCO2 32 L (38-50) mmHg Sodium (136-145) mmol/L Potassium (3.5-5.1) mmol/L POC Chloride (101-112) mmol/L Chloride (98-107) mmol/L POC Total CO2 (24-31) mmol/L Anion Gap (3-11) POC BUN (7-18) mg/dl Creatinine (0.6-1.4) mg/dl POC Creatinine (0.6-1.3) mg/dl Glucose (70-99(Fasting)) mg/dl POC Glucose 357 H* 372 H* (70-99) mg/dl POC Glucose (other) (70-99) mg/dl Calcium (8.5-10.1) mg/dl AST (13-39) U/L Alkaline Phosphatase (34-104) U/L Triglycerides (0-150) mg/dl VLDL Cholesterol, Calc (0-30) mg/dl Cholesterol/HDL Ratio (0-5) 05/20/21 05/21/21 05/21/21 Range/Units 22:33 04:39 06:14 RBC 4.65 L (4.7-6.1) M/uL Hgb 13.0 L (14.0-18.0) g/dL Hct 37.3 L (42-52) % MCV (80-100) fL MPV 12.7 H (7.4-10.4) fL Lymph # (Auto) (1.2-3.4) K/uL [place] # (Auto) (0.11-0.59) K/uL VBG pH (7.36-7.41) VBG pCO2 (38-50) mmHg Sodium (136-145) mmol/L Potassium (3.5-5.1) mmol/L POC Chloride (101-112) mmol/L Chloride (98-107) mmol/L POC Total CO2 (24-31) mmol/L Anion Gap (3-11) POC BUN (7-18) mg/dl Creatinine (0.6-1.4) mg/dl POC Creatinine (0.6-1.3) mg/dl Glucose (70-99(Fasting)) mg/dl POC Glucose 343 H* 145 H (70-99) mg/dl POC Glucose (other) (70-99) mg/dl Calcium (8.5-10.1) mg/dl AST (13-39) U/L Alkaline Phosphatase (34-104) U/L Triglycerides (0-150) mg/dl VLDL Cholesterol, Calc (0-30) mg/dl Cholesterol/HDL Ratio (0-5) 05/21/21 05/21/21 Range/Units 06:14 07:49 RBC (4.7-6.1) M/uL Hgb (14.0-18.0) g/dL Hct (42-52) % MCV (80-100) fL MPV (7.4-10.4) fL Lymph # (Auto) (1.2-3.4) K/uL [place] # (Auto) (0.11-0.59) K/uL VBG pH (7.36-7.41) VBG pCO2 (38-50) mmHg Sodium (136-145) mmol/L Potassium (3.5-5.1) mmol/L POC Chloride (101-112) mmol/L Chloride (98-107) mmol/L POC Total CO2 (24-31) mmol/L Anion Gap (3-11) POC BUN (7-18) mg/dl Creatinine (0.6-1.4) mg/dl POC Creatinine (0.6-1.3) mg/dl Glucose 131 H (70-99(Fasting)) mg/dl POC Glucose 131 H (70-99) mg/dl POC Glucose (other) (70-99) mg/dl Calcium 8.2 L (8.5-10.1) mg/dl AST (13-39) U/L Alkaline Phosphatase (34-104) U/L Triglycerides 211 H (0-150) mg/dl VLDL Cholesterol, Calc 42 H (0-30) mg/dl Cholesterol/HDL Ratio 7.0 H (0-5) Diagnostic Findings CXR-No acute cardiopulmonary disease. CT head-he paranasal sinuses and mastoid air cells are clear. The calvarium and skull base are intact. The ventricles and sulci are within normal limits. There is no mass, hematoma, midline shift, or acute infarct. Questional small hypodensity within the right frontal lobe on image 18 likely represents volume averaging with a normal sulcus. CTA head/neck-No significant stenosis, occlusion, or aneurysm within the [place]. No occlusion or dissection identified within the carotid or vertebral arteries. There is approximately 30% focal stenosis within the proximal bilateral internal carotid arteries due to the calcified plaque. A 2 cm periapical lucency within the right anterior maxilla. MRI brain-No acute intracranial findings. White matter T2 hyperintense foci which favor mild small vessel disease. Small focus of encephalomalacia within the right frontal lobe which may reflect an old infarct.
[2021-05-21] MEDS: TAMSULOSIN HCL 0.4 MG CAP PO SCH (08:55)
[2021-05-21] MEDS: CLOPIDOGREL BISULFATE 75 MG TAB PO SCH (08:55)
[2021-05-21] MEDS: ISOSORBIDE MONO EXTENDED REL 30 MG TABCR PO SCH (08:55)
[2021-05-21] MEDS: EZETIMIBE 10 MG TABLET PO SCH (08:55)
[2021-05-21] MEDS: ASPIRIN 81 MG CHEW PO SCH (08:55)
[2021-05-21] MEDS ORDERED: INSULIN GLARGINE SOLOSTAR 100 UNITS/ML 3 ML PEN SC SCH ×2 (09:00→21:00)
[2021-05-21] MEDS: METOPROLOL TARTRATE 25 MG TAB PO SCH ×2 (10:04→21:18)
[2021-05-21] MEDS ORDERED: IBUPROFEN 200 MG TAB PO STA (10:18)
--- NOTE | 2021-05-21 14:28 | Hospitalist Progress Note ---
Date of Service May 21, 2021 Assessment & Plan (1) Stroke-like symptom: Plan: Patient is 65-year-old male with PMH CAD, history of NSTEMI, status post multiple cardiac stents, uncontrolled DM II, HTN, dyslipidemia, PAUL presented to ER with complaint of dizziness episode followed by slurred speech, rambling speech, nausea and vomiting. Upon arrival to ER patient with normal speech and is alert and oriented x3. In ER patient afebrile, vitals stable. No leukocytosis. K: 3.3, glucose: 420, otherwise no significant electrolyte abnormality, troponin: Negative CT head: No acute intracranial abnormality CTA head and neck -no significant findings and or stenosis Tele to monitor for arrhythmias-no arrhythmias noted DDX: TIA vs CVA, hyperglycemic episode Lipid panel-triglyceride is elevated at 211 otherwise unremarkabl A1c -pending MRI brain-1. No acute intracranial findings. 2. White matter T2 hyperintense foci which favor mild small vessel disease. 3. Small focus of encephalomalacia within the right frontal lobe which may reflect an old infarct. Echo with bubble study-pending Fall and aspiration precautions PT/OT evaluation Continue Plavix, ASA Neurology consult-appreciate input and recommendation (2) Hyperglycemia: Plan: Blood sugar is noted to be very high in the emergency room at 357 Symptoms could be related to hypoglycemic episode Blood sugar seems to be controlled now (3) Uncontrolled type II diabetes mellitus: Plan: A1c: 14.1 on 05/2020. Patient reports blood sugars range >300s has been tried on various agents however has been unable to tolerate them. Currently following with [facility] outpatient In ER random glucose: 420. Was given 6 units insulin R with repeat glucose 420 Hold home agents IVF plus KCl Basal bolus insulin per protocol. Will consult glycemic pharmacy for assistance with glycemic management Patient may benefit from outpatient endocrinology referral (4) Hypokalemia: Plan: K: 3.3. Magnesium WNL In ER given 40 mEq oral KCl Receiving KCl in IV fluids Monitor Pseudohyponatremia Corrected sodium 137 for glucose of 420 (5) TOMA (acute kidney injury): Plan: Cr: 1.5. Baseline 1.0 Gentle IVF Monitor renal functions, avoid nephrotoxic agents when possible Creatinine has been normalized (6) CAD (coronary artery disease): Plan: History NSTEMI 2014, 2016, status post multivessel stents x5 as had declined CABG. S/p MARY to LAD in 05/2020 Denies chest pain, shortness of breath Continue aspirin, Plavix, isosorbide, metoprolol tartrate No acute symptoms (7) Hypertension: Plan: BP stable Continue metoprolol tartrate with holding parameters Losartan, amlodipine on hold secondary to allowing permissive hypertension (8) Dyslipidemia: Plan: Continue Zetia (9) PAUL (obstructive sleep apnea): Plan: Not on CPAP DVT Prophylaxis SCDs Full Code as per discussion with pt Follows with Dr Connors for routine care Admission and Anticipated Discharge Date Admission Date: May 20, 2021 Subjective 05/21/2021 The patient was seen and examined in medical telemetry unit He has been feeling much better this morning Presented to ER with weakness in the right lower extremity, numbness in the fingertips and slurred speech Condition seems to be improving but right lower extremity weakness is persisting Review of Systems Review of Systems: All systems reviewed and are unremarkable except as noted below Neurologic: Alert, awake and oriented x3. Has minimal right lower extremity weakness otherwise unremarkable neuro examination Physical Exam Physical Exam: Lying in bed comfortably Constitutional: well developed and well nourished; not ill appearing Eyes: PERRL, conjunctivae normal, anicteric sclerae ENMT: external ear and nose normal, oropharynx normal Neck: trachea midline, no thyromegaly Respiratory: no respiratory distress Auscultation: lungs clear to auscultation bilaterally Cardiovascular: Rate/Rhythm: regular rate and regular rhythm; not tachycardic Heart Sounds: normal S1 and normal S2; no murmur Extremities: no edema Gastrointestinal (Abdomen): Inspection/Auscultation: normal bowel sounds; abdomen not distended Percussion/Palpation: abdomen soft; abdomen nontender Musculoskeletal: No acute arthritis in any joint Neurologic: Alert, awake and oriented x3. No facial asymmetry. No dysarthria and dysphagia, no visual abnormality, minimal weakness involving right lower extremity Results & Data Results & Data ([facility]) Vital Signs (Past 12 Hours) Vital Signs Temp Pulse Pulse Resp BP Pulse Ox 05/21/21 12:44 36.7 C 65 18 122/72 93 05/21/21 10:03 70 136/80 97 05/21/21 07:49 61 05/21/21 07:22 36.7 C 63 18 129/73 92 05/21/21 03:38 36.5 C 58 L 18 111/65 93 Laboratory Results Short CBC 05/20/21 05/21/21 Range/Units 14:43 06:14 WBC 10.47 7.09 (4.8-10.8) K/uL Hgb 14.8 13.0 L (14.0-18.0) g/dL Hct 41.6 L 37.3 L (42-52) % Plt Count 241 195 (130-400) K/uL BMP 05/20/21 05/21/21 14:43 06:14 Sodium 132 L 138 Potassium 3.3 L 3.8 Chloride 97 L 107 Carbon Dioxide 21 25 BUN 19 19 Creatinine 1.55 H 1.17 D Glucose 420 H* 131 H Calcium 9.1 8.2 L Cardiac Enzymes 05/20/21 Range/Units 14:43 Troponin I < 0.03 (0-0.04) ng/ml Liver Function 05/20/21 Range/Units 14:43 Total Bilirubin 0.8 (0.2-1.0) mg/dl AST 11 L (13-39) U/L ALT 9 (7-52) U/L Alkaline Phosphatase 107 H (34-104) U/L Albumin 4.1 (3.4-5.0) gm/dl Medications Administered Current Inpatient Medications Aspirin (Aspirin 81 Mg Chew) 81 mg PO DAILY RANI Stop: 06/20/21 08:59 Last Admin: 05/21/21 08:55 Dose: 81 mg Documented by: Clopidogrel Bisulfate (Clopidogrel Bisulfate 75 Mg Tab) 75 mg PO DAILY RANI Stop: 06/20/21 08:59 Last Admin: 05/21/21 08:55 Dose: 75 mg Documented by: Dextrose (Dextrose 50% 50 Ml Syringe) 25 - 50 ml IV UD PRN; Protocol PRN Reason: Hypoglycemia Protocol Stop: 06/19/21 19:39 Ezetimibe (Ezetimibe 10 Mg Tablet) 10 mg PO DAILY RANI Stop: 06/20/21 08:59 Last Admin: 05/21/21 08:55 Dose: 10 mg Documented by: Gabapentin (Gabapentin 300 Mg Cap) 300 mg PO HS RANI Stop: 06/19/21 20:59 Last Admin: 05/20/21 22:34 Dose: 300 mg Documented by: Glucagon (Glucagon For Inj 1 Mg Vial) 1 mg SQ UD PRN; Protocol PRN Reason: Hypoglycemia Protocol Stop: 06/19/21 19:39 Glucose (Glucose 10 Tabs/Tube) 4 - 8 tabs PO UD PRN; Protocol PRN Reason: Hypoglycemia Protocol Stop: 06/19/21 19:39 Glucose (Glucose 40% Gel 15 Gm Tube) 15 - 30 gm PO UD PRN; Protocol PRN Reason: Hypoglycemia Protocol Stop: 06/19/21 19:39 Insulin Aspart (Insulin Aspart Per Unit) 0 units SC ACHS RANI Stop: 06/19/21 20:59 Last Admin: 05/21/21 12:37 Dose: 8 units Documented by: Insulin Glargine (Insulin Glargine Solostar 100 Units/Ml 3 Ml Pen) 10 units SC QAM RANI Stop: 06/20/21 08:59 Last Admin: 05/21/21 08:50 Dose: 10 units Documented by: Isosorbide Mononitrate (Isosorbide [place] Extended Rel 30 Mg Tabcr) 30 mg PO DAILY [facility] Stop: 06/20/21 08:59 Last Admin: 05/21/21 08:55 Dose: 30 mg Documented by: Metoprolol Tartrate (Metoprolol Tartrate 25 Mg Tab) 37.5 mg PO BID [facility] Stop: 06/19/21 20:59 Last Admin: 05/21/21 10:04 Dose: 37.5 mg Documented by: Miscellaneous (Carbohydrates For Hypoglycemia ) 15 - 30 gm PO UD PRN PRN Reason: Hypoglycemia Protocol Stop: 06/19/21 19:39 Miscellaneous Information (Pharmacist Discharge Med Rec Consult) 1 ea N/A UD PRN PRN Reason: Consult Stop: 06/19/21 19:39 Miscellaneous Information (Pharmacy Glycemic Mgmt Consult) 1 ea N/A UD PRN PRN Reason: Consult Stop: 06/19/21 19:39 Nitroglycerin (Nitroglycerin Sl 0.4 Mg/Tab Tab) 0.4 mg SL PRN PRN PRN Reason: Chest Pain Stop: 06/19/21 19:39 Ondansetron HCl (Ondansetron Inj 2 Mg/Ml 2 Ml Vial) 4 mg IV Q6H PRN PRN Reason: Nausea Stop: 06/19/21 19:39 Tamsulosin HCl (Tamsulosin Hcl 0.4 Mg Cap) 0.4 mg PO DAILY [facility] Stop: 06/20/21 08:59 Last Admin: 05/21/21 08:55 Dose: 0.4 mg Documented by:
--- NOTE | 2021-05-21 15:14 | Pharmacy Report ---
Pharmacy Glycemic Short Note 2 - Date of Service May 21, 2021 - Glycemic Short BSG Results (Last 24 hours): 05/20/21 05/20/21 05/20/21 14:43 15:46 17:26 Glucose 420 H* POC Glucose 357 H* 372 H* 05/20/21 05/21/21 05/21/21 22:33 04:39 06:14 Glucose 131 H POC Glucose 343 H* 145 H 05/21/21 05/21/21 07:49 12:04 Glucose POC Glucose 131 H 160 H OUTPATIENT ANTIDIABETIC REGIMEN: * Novolog 10 units TID with meals * Lantus 38 units SQ HS * Metformin 1 gm PO BID ASSESSMENT: * 65 y/o M admitted for possible stroke. Patient with history of type 2 diabetes managed on basal and bolus insulins at home as well as Metformin. * Will hold Metformin while admitted and utilize only basal + bolus insulin for glycemic control. * Patient received 20 units of basal insulin last night. BSG trended down to 145 mg/dl overnight. * Fasting BSG today was 131 mg/dl. Added AM dose of 10 units of Lantus today. HS dose scale based on BSG for tonight. * Continued with Novolog parameters same as yesterday. PLAN FOR INPATIENT GLYCEMIC CONTROL: * Hold outpatient oral diabetes medications * Basal insulin * Lantus 10 units SQ today AM. 20-30 units dose scale SQ at HS based on BSG * Bolus insulin * NovoLog per scale ACHS or Q6hrs while NPO * Goal Range: Low 110 mg/dL - High 140 mg/dL * Correction Factor: 20 mg/dL/unit * Nutritional / Prandial insulin per carb ratio of 1 unit per 7 grams CHO consumed
[2021-05-21 16:34] LABS: Estimated Average Glucose 344 mg/dl; Hemoglobin A1C 13.6 % (4.5-5.6)
[2021-05-21] MEDS: GABAPENTIN 300 MG CAP PO SCH (21:19)
[2021-05-22] MEDS: ASPIRIN 81 MG CHEW PO SCH (08:30)
[2021-05-22] MEDS: CLOPIDOGREL BISULFATE 75 MG TAB PO SCH (08:33)
[2021-05-22] MEDS: EZETIMIBE 10 MG TABLET PO SCH (08:34)
[2021-05-22] MEDS: ISOSORBIDE MONO EXTENDED REL 30 MG TABCR PO SCH (08:35)
[2021-05-22] MEDS: METOPROLOL TARTRATE 25 MG TAB PO SCH (08:39)
[2021-05-22] MEDS: TAMSULOSIN HCL 0.4 MG CAP PO SCH (08:40)
[2021-05-22] MEDS: INSULIN ASPART PER UNIT SC SCH (08:48)
--- NOTE | 2021-05-22 11:30 | Hospitalist Progress Note ---
Date of Service May 22, 2021 Assessment & Plan (1) Stroke-like symptom: Plan: Stroke has been ruled out, symptoms were likely due to high blood sugar and is complicated by likely an attack of migraine Patient is 65-year-old male with PMH CAD, history of NSTEMI, status post multiple cardiac stents, uncontrolled DM II, HTN, dyslipidemia, PAUL presented to ER with complaint of dizziness episode followed by slurred speech, rambling speech, nausea and vomiting. Upon arrival to ER patient with normal speech and is alert and oriented x3. In ER patient afebrile, vitals stable. No leukocytosis. K: 3.3, glucose: 420, otherwise no significant electrolyte abnormality, troponin: Negative CT head: No acute intracranial abnormality CTA head and neck -no significant findings and or stenosis Tele to monitor for arrhythmias-no arrhythmias noted DDX: TIA vs CVA, hyperglycemic episode Lipid panel-triglyceride is elevated at 211 otherwise unremarkabl A1c -pending MRI brain-1. No acute intracranial findings. 2. White matter T2 hyperintense foci which favor mild small vessel disease. 3. Small focus of encephalomalacia within the right frontal lobe which may reflect an old infarct. Echo with bubble study-pending Fall and aspiration precautions PT/OT evaluation Continue Plavix, ASA Neurology consult-appreciate input and recommendation Remains asymptomatic and will be discharged home this afternoon (2) Hyperglycemia: Plan: Blood sugar is noted to be very high in the emergency room at 357 Symptoms could be related to hypoglycemic episode Blood sugar seems to be controlled now Was advised to continue his insulin and other medications to control diabetes (3) Uncontrolled type II diabetes mellitus: Plan: A1c: 14.1 on 05/2020. Patient reports blood sugars range >300s has been tried on various agents however has been unable to tolerate them. Currently following with [facility] outpatient In ER random glucose: 420. Was given 6 units insulin R with repeat glucose 420 Hold home agents IVF plus KCl Basal bolus insulin per protocol. Will consult glycemic pharmacy for assistance with glycemic management Strongly advised to follow diabetic diet and take insulin and medication as advised (4) Hypokalemia: Plan: K: 3.3. Magnesium WNL In ER given 40 mEq oral KCl Receiving KCl in IV fluids Monitor Pseudohyponatremia Corrected sodium 137 for glucose of 420 (5) TOMA (acute kidney injury): Plan: Cr: 1.5. Baseline 1.0 Gentle IVF Monitor renal functions, avoid nephrotoxic agents when possible Creatinine has been normalized (6) CAD (coronary artery disease): Plan: History NSTEMI 2014, 2016, status post multivessel stents x5 as had declined CABG. S/p MARY to LAD in 05/2020 Denies chest pain, shortness of breath Continue aspirin, Plavix, isosorbide, metoprolol tartrate No acute symptoms (7) Hypertension: Plan: BP stable Continue metoprolol tartrate with holding parameters Losartan, amlodipine on hold secondary to allowing permissive hypertension Will restart blood pressure medications on discharge (8) Dyslipidemia: Plan: Continue Zetia (9) PAUL (obstructive sleep apnea): Plan: Not on CPAP DVT Prophylaxis SCDs Full Code as per discussion with pt Follows with Dr Connors for routine care Admission and Anticipated Discharge Date Admission Date: May 20, 2021 Subjective 05/21/2021 The patient was seen and examined in medical telemetry unit He has been feeling much better this morning Presented to ER with weakness in the right lower extremity, numbness in the fingertips and slurred speech Condition seems to be improving but right lower extremity weakness is persisting 05/22/2021 The patient was seen and examined in medical telemetry unit He does not have any more neuro symptoms and denies any other significant symptoms Has had physical therapy without any problem He will be discharged home this afternoon Review of Systems Review of Systems: All systems reviewed and are unremarkable except as noted below Neurologic: Alert, awake and oriented x3. Has minimal right lower extremity weakness otherwise unremarkable neuro examination Physical Exam Physical Exam: Lying in bed comfortably Constitutional: well developed and well nourished; not ill appearing Eyes: PERRL, conjunctivae normal, anicteric sclerae ENMT: external ear and nose normal, oropharynx normal Neck: trachea midline, no thyromegaly Respiratory: no respiratory distress Auscultation: lungs clear to auscultation bilaterally Cardiovascular: Rate/Rhythm: regular rate and regular rhythm; not tachycardic Heart Sounds: normal S1 and normal S2; no murmur Extremities: no edema Gastrointestinal (Abdomen): Inspection/Auscultation: normal bowel sounds; abdomen not distended Percussion/Palpation: abdomen soft; abdomen nontender Musculoskeletal: no cyanosis or clubbing, extremities motor strength 5/5 Neurologic: normal touch/pain/proprioception, CN's II-XI intact bilaterally and moves all extremities Results & Data Results & Data ([facility]) Vital Signs (Past 12 Hours) Vital Signs Temp Pulse Pulse Pulse Resp BP Pulse Ox 05/22/21 10:15 36.6 C 60 15 160/88 H 97 05/22/21 07:26 50 L 05/22/21 07:00 36.7 C 52 L 14 138/86 97 05/22/21 02:55 36.5 C 55 L 18 112/71 97 05/21/21 23:41 36.8 C 61 18 133/76 96 Medications Administered Current Inpatient Medications Aspirin (Aspirin 81 Mg Chew) 81 mg PO DAILY RANI Stop: 06/20/21 08:59 Last Admin: 05/22/21 08:30 Dose: 81 mg Documented by: Clopidogrel Bisulfate (Clopidogrel Bisulfate 75 Mg Tab) 75 mg PO DAILY [facility] Stop: 06/20/21 08:59 Last Admin: 05/22/21 08:33 Dose: 75 mg Documented by: Dextrose (Dextrose 50% 50 Ml Syringe) 25 - 50 ml IV UD PRN; Protocol PRN Reason: Hypoglycemia Protocol Stop: 06/19/21 19:39 Ezetimibe (Ezetimibe 10 Mg Tablet) 10 mg PO DAILY RANI Stop: 06/20/21 08:59 Last Admin: 05/22/21 08:34 Dose: 10 mg Documented by: Gabapentin (Gabapentin 300 Mg Cap) 300 mg PO HS [facility] Stop: 06/19/21 20:59 Last Admin: 05/21/21 21:19 Dose: 300 mg Documented by: Glucagon (Glucagon For Inj 1 Mg Vial) 1 mg SQ UD PRN; Protocol PRN Reason: Hypoglycemia Protocol Stop: 06/19/21 19:39 Glucose (Glucose 10 Tabs/Tube) 4 - 8 tabs PO UD PRN; Protocol PRN Reason: Hypoglycemia Protocol Stop: 06/19/21 19:39 Glucose (Glucose 40% Gel 15 Gm Tube) 15 - 30 gm PO UD PRN; Protocol PRN Reason: Hypoglycemia Protocol Stop: 06/19/21 19:39 Insulin Aspart (Insulin Aspart Per Unit) 0 units SC ACHS [facility] Stop: 06/19/21 20:59 Last Admin: 05/22/21 08:48 Dose: 7 units Documented by: Insulin Glargine (Insulin Glargine Solostar 100 Units/Ml 3 Ml Pen) 25 units SC HS [facility] Stop: 06/21/21 20:59 Isosorbide Mononitrate (Isosorbide Elliott Extended Rel 30 Mg Tabcr) 30 mg PO DAILY RANI Stop: 06/20/21 08:59 Last Admin: 05/22/21 08:35 Dose: 30 mg Documented by: Metoprolol Tartrate (Metoprolol Tartrate 25 Mg Tab) 37.5 mg PO BID RANI Stop: 06/19/21 20:59 Last Admin: 05/22/21 08:39 Dose: Not Given Documented by: Miscellaneous (Carbohydrates For Hypoglycemia ) 15 - 30 gm PO UD PRN PRN Reason: Hypoglycemia Protocol Stop: 06/19/21 19:39 Miscellaneous Information (Pharmacy Glycemic Mgmt Consult) 1 ea N/A UD PRN PRN Reason: Consult Stop: 06/19/21 19:39 Nitroglycerin (Nitroglycerin Sl 0.4 Mg/Tab Tab) 0.4 mg SL PRN PRN PRN Reason: Chest Pain Stop: 06/19/21 19:39 Ondansetron HCl (Ondansetron Inj 2 Mg/Ml 2 Ml Vial) 4 mg IV Q6H PRN PRN Reason: Nausea Stop: 06/19/21 19:39 Tamsulosin HCl (Tamsulosin Hcl 0.4 Mg Cap) 0.4 mg PO DAILY [facility] Stop: 06/20/21 08:59 Last Admin: 05/22/21 08:40 Dose: 0.4 mg Documented by:
[2021-05-22] MEDS ORDERED: INSULIN GLARGINE SOLOSTAR 100 UNITS/ML 3 ML PEN SC SCH (21:00)
--- NOTE | 2021-05-23 08:08 | Discharge Summary ---
Date of Service May 23, 2021 Admission HPI Per Admitting Provider Patient is 65-year-old male with PMH CAD, history of NSTEMI, status post multiple cardiac stents, uncontrolled DM II, HTN, dyslipidemia, PAUL presented to ER with complaint of dizziness episode. Patient states this morning woke up and felt his normal self. Reports took morning medications did not eat breakfast. Reports was out shopping today when had onset of dizziness and feeling lightheaded. He reports he has had episodes of similar dizziness/lightheadedness in the past when he would take his medications and not eat. He reports he thought this was a similar episode and went to a restaurant. Patient remembers going to the restaurant and sitting down at the table and getting a menu and ordering food. He reports shortly after ordering food his reports that patient started with rambling speech, slurred speech. Patient states remembers feeling nauseated and getting up to go to the bathroom and reports vomiting. He reports he feels like he was off balance for the past week. Denies any recent falls. Patient denies any chest pain, shortness of breath. Since being in ER patient with normal speech and is alert and oriented x3. He is reporting left frontal headache, blurry vision right eye worse than left eye, and paresthesias of bilateral hands and fingers. He reports chronic neuropathy of bilateral feet. He is unsure if he is having any lower extremity weakness. Does not feel he has upper extremity weakness. Denies any history of stroke or TIA in the past. Patient reports that his blood sugars run in the 300s to 400s at baseline and often his meter reads "high". He reports being on multiple different medications denies fever/chills, diaphoresis, diarrhea, constipation, SMITH, dizziness, syncope, vision changes, neck pain, CP, SOB, orthopnea, palpitations, cough, sore throat, choking, otalgia, rhinorrhea, abdominal pain, paresthesias, weakness, extremity weakness, extremity edema, rashes, urinary symptoms. Admission Exam Per Admitting Provider Physical Exam: General: no acute distress, WDWN Head: normocephalic, atraumatic Eyes: PERRL, EOM's intact, conjunctiva non-injected, anicteric ENT: hard of hearing, normal inspection external ears, nose, mucous membranes moist Neck: supple, trachea midline Lungs: clear, no respiratory distress, no wheezing/rhonchi/rales CV: RRR, no murmur, no pretibial edema Abd: normal BS, soft, non-tender Ext: no cyanosis, no calf tenderness Neuro: A&O x 3, normal affect, No nystagmus, face is strong and symmetric, no dysarthria, Shoulder shrug intact, Tongue is midline, normal movement, no fasciculations. BUE strength 5/5. RLE: strength 4/5, LLE: strength 5/5 Skin: warm, dry Principal Diagnosis Strokelike symptoms likely secondary to migraine and/or high blood sugar, hyperglycemic episode, TOMA, hypertension, CKD Discharge Exam Lying in bed comfortably Constitutional well developed and well nourished; not ill appearing Eyes PERRL, conjunctivae normal, anicteric sclerae ENMT external ear and nose normal, oropharynx normal Neck trachea midline, no thyromegaly Respiratory no respiratory distress Auscultation: lungs clear to auscultation bilaterally Cardiovascular Rate/Rhythm: regular rate and regular rhythm; not tachycardic Heart Sounds: normal S1 and normal S2; no murmur Extremities: no edema Gastrointestinal (Abdomen) Inspection/Auscultation: normal bowel sounds; abdomen not distended Percussion/Palpation: abdomen soft; abdomen nontender Musculoskeletal no cyanosis or clubbing, extremities motor strength 5/5 Neurologic normal touch/pain/proprioception, CN's II-XI intact bilaterally and moves all extremities Discharge Data Allergies Allergy/AdvReac Type Severity Reaction Status Date / Time acetaminophen Allergy Unknown . Unverified 05/20/21 16:08 methadone Allergy Unknown . Unverified 05/20/21 16:08 oxycodone Allergy Unknown rash Unverified 05/20/21 20:37 propoxyphene Allergy Unknown . Unverified 05/20/21 16:08 empagliflozin Allergy Verified 05/20/21 20:37 [From Jardiance] sitagliptin [From Januvia] Allergy Verified 05/20/21 20:37 semaglutide [From Ozempic] AdvReac Verified 05/20/21 20:37 Consultations 05/20/21 17:02 ED Decision to Admit Stat 05/20/21 18:21 Consult Neurology Routine Ordered Studies 05/20/21 14:47 CT head/brain wo con Stat 05/20/21 17:02 CT angio head w con Stat CT angio neck with con Stat 05/21/21 00:58 MR brain wo con Routine Diabetes Follow up Diabetes Follow-up Needed for HgbA1c >9% Hospital Course (1) Stroke-like symptom: Stroke has been ruled out, symptoms were likely due to high blood sugar and is complicated by likely an attack of migraine Patient is 65-year-old male with PMH CAD, history of NSTEMI, status post multiple cardiac stents, uncontrolled DM II, HTN, dyslipidemia, PAUL presented to ER with complaint of dizziness episode followed by slurred speech, rambling speech, nausea and vomiting. Upon arrival to ER patient with normal speech and is alert and oriented x3. In ER patient afebrile, vitals stable. No leukocytosis. K: 3.3, glucose: 420, otherwise no significant electrolyte abnormality, troponin: Negative CT head: No acute intracranial abnormality CTA head and neck -no significant findings and or stenosis Tele to monitor for arrhythmias-no arrhythmias noted DDX: TIA vs CVA, hyperglycemic episode Lipid panel-triglyceride is elevated at 211 otherwise unremarkabl A1c -pending MRI brain-1. No acute intracranial findings. 2. White matter T2 hyperintense foci which favor mild small vessel disease. 3. Small focus of encephalomalacia within the right frontal lobe which may reflect an old infarct. Echo with bubble study-pending Fall and aspiration precautions PT/OT evaluation Continue Plavix, ASA Neurology consult-appreciate input and recommendation Remains asymptomatic and will be discharged home this afternoon (2) Hyperglycemia: Blood sugar is noted to be very high in the emergency room at 357 Symptoms could be related to hypoglycemic episode Blood sugar seems to be controlled now Was advised to continue his insulin and other medications to control diabetes (3) Uncontrolled type II diabetes mellitus: A1c: 14.1 on 05/2020. Patient reports blood sugars range >300s has been tried on various agents however has been unable to tolerate them. Currently following with [facility] outpatient In ER random glucose: 420. Was given 6 units insulin R with repeat glucose 420 Hold home agents IVF plus KCl Basal bolus insulin per protocol. Will consult glycemic pharmacy for assistance with glycemic management Strongly advised to follow diabetic diet and take insulin and medication as advised (4) Hypokalemia: K: 3.3. Magnesium WNL In ER given 40 mEq oral KCl Receiving KCl in IV fluids Monitor Pseudohyponatremia Corrected sodium 137 for glucose of 420 (5) TOMA (acute kidney injury): Cr: 1.5. Baseline 1.0 Gentle IVF Monitor renal functions, avoid nephrotoxic agents when possible Creatinine has been normalized (6) CAD (coronary artery disease): History NSTEMI 2014, 2017, status post multivessel stents x5 as had declined CABG. S/p MARY to LAD in 05/2020 Denies chest pain, shortness of breath Continue aspirin, Plavix, isosorbide, metoprolol tartrate No acute symptoms (7) Hypertension: BP stable Continue metoprolol tartrate with holding parameters Losartan, amlodipine on hold secondary to allowing permissive hypertension Will restart blood pressure medications on discharge (8) Dyslipidemia: Continue Zetia (9) PAUL (obstructive sleep apnea): Not on CPAP DVT Prophylaxis SCDs Full Code as per discussion with pt Follows with Dr Connors for routine care Total Time Total Time Spent Total Time Spent (In Minutes): 35 minutes Discharge Plan Discharge Items Patient Disposition: Home - Self-Care Reason For Visit: STROKE LIKE SYMPTOMS Discharge Diagnosis: Strokelike symptoms likely secondary to migraine and/or high blood sugar, hyperglycemic episode, TOMA, hypertension, CKD Condition on Discharge: Good Activity: Resume your previous activity Non-emergency contact: Primary Care Provider Call non-emergency contact if: you have any medication questions and your symptoms worsen Follow-up/Referrals: Chad Connors DO [Primary Care Provider] - (Date & Time 05/27/2021 2:00 PM Provider Chad Connors Jr., DO Department [facility] ) Shanon Kenyon MD [Outside Practitioners] - (Date & Time 06/01/2021 9:30 AM Provider Shanon Kenyon MD Department Cardiology [facility] ) Diet: Carb Consistent or DM2 Addtl Attending Provider Instructions: Please take precautions to avoid fall Please follow diabetic diet and take your insulin and other medications to improve your diabetic control No change in your current medications Please keep follow-up appointments with your healthcare providers Pending Studies at Discharge: No Stand-Alone Forms: [employer], Smoking Cessation Medications and DC Order Prescriptions: Continued metformin 500 mg tablet 1,000 mg PO BID RF: 0 albuterol sulfate 2.5 mg /3 mL (0.083 %) Solution For Nebulization 2.5 mg INHALATION DIRECTED PRN (Reason: Shortness Of Breath Or Wheezing) RF: 0 isosorbide mononitrate 30 mg tablet extended release 24 hr 30 mg PO DAILY RF: 0 clopidogrel 75 mg tablet 75 mg PO DAILY RF: 0 tamsulosin 0.4 mg capsule 0.4 mg PO DAILY RF: 0 amlodipine 10 mg tablet 10 mg PO DAILY RF: 0 nitroglycerin [Nitrostat] 0.4 mg Tablet, Sublingual 0.4 mg sublingual DIRECTED RF: 0 gabapentin 300 mg capsule 300 mg PO HS RF: 0 aspirin 81 mg Tablet,Chewable 81 mg PO DAILY RF: 0 losartan 100 mg tablet 100 mg PO DAILY RF: 0 ezetimibe 10 mg tablet 10 mg PO DAILY RF: 0 insulin aspart U-100 [Novolog Flexpen U-100 Insulin] 100 unit/mL (3 mL) insulin pen 10 unit SUBCUT TIDM RF: 0 metoprolol tartrate 25 mg tablet 37.5 mg PO BID RF: 0 Lantus Solostar U-100 Insulin 100 unit/mL (3 mL) insulin pen 38 unit SUBCUT HS RF: 0 Discharge Orders: Discharge Order (Routine); Ordered 05/22/21 Ordered By: Deejay Lopes Admission Data Admit Date/Time: 05/20/21 17:48 Attending Provider: Deejay Lopes Admit Provider: Ignacio Barbosa Primary Care Provider: Chad Connors V. Other Providers: Ignacio Barbosa ; Raúl Reyes Other Interventions: Discharge Summary Assessment (RN) Last Done: 05/22/21 11:58
== END 2021-05-22 13:16 | disposition home or self-care (01) ==
LOC: 2N 14:34 → ED 14:34 → SUATTDRO 17:48 → 2N 20:04
DX: I10 Essential (primary) hypertension; Z87.891 Personal history of nicotine dependence; Z88.8 Allergy status to other drugs, medicaments and biological substances; Z95.5 Presence of coronary angioplasty implant and graft; E78.5 Hyperlipidemia, unspecified; Z88.5 Allergy status to narcotic agent; Z88.9 Allergy status to unspecified drugs, medicaments and biological substances; N17.9 Acute kidney failure, unspecified; Z79.84 Long term (current) use of oral hypoglycemic drugs; E87.6 Hypokalemia; Z79.4 Long term (current) use of insulin; Z79.82 Long term (current) use of aspirin; E11.65 Type 2 diabetes mellitus with hyperglycemia; I25.10 Atherosclerotic heart disease of native coronary artery without angina pectoris; G47.30 Sleep apnea, unspecified; R29.818 Other symptoms and signs involving the nervous system